=== PATIENT | female | born 1950 | race Caucasian/White ===

== ENCOUNTER 2018-06-05 10:52 | Emergency (ER) | payer OTHER ==
--- NOTE | 2018-06-05 11:13 | PDOC ---
History of Present Illness - General Chief Complaint: Injury Stated Complaint: FALL/BACK PAIN Time Seen by Provider: 06/05/18 11:11 History Source: Patient Exam Limitations: No Limitations - History of Present Illness Initial Comments: 06/05/18 12:12 HPI 67 YOF with no known medical history BIB EMS presenting trip and fall down 1 flight of stairs. She states she tripped at home, no prodromal sx, slipped and fell down 12 steps on her back/buttock. +hit to her head, but no LOC. complaining of significant lower back, abdominal and buttock pain. +left knee laceration and left knee pain. She called out to her neighbor who found her on the ground with pain. Tdap up to date < 5 years. No AC or ASA/antiplatelet use. 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 +current smoker. No alcohol. No illicit drugs. Surgical history: C- section ROS Constitutional: no fevers or chills. No weakness. HEENT: mild BERRIOS, no dizziness. No visual/hearing disturbances. CVS: no cp or syncope. Resp: no sob. No cough. Gastrointestinal: +abdominal pain, no nausea or vomiting. Genitourinary: no urinary sx, hematuria. MUSCULOSKELETAL: No joint pain and swelling. No neck pain, +back and pelvis/ buttock pain. SKIN: no redness or skin changes, no discharge, no rash. +left knee laceration. Hematologic: no easy bruising/bleeding. NEUROLOGIC: +headache, No dizziness, LOC or altered mental status. No weakness, numbness or tingling. Allergic/Immunologic: no allergies All other systems reviewed and negative, or as documented in HPI. PE: General: GCS 15 NAD, well appearing HEENT: NCAT, PERRL, EOMI. Airway intact. No battles sign or raccoon eyes. No e/ o ocular. Dentition intact. No e/o septal hematoma, nasal bridge stable. Neck: neck supple, no midline C spine tenderness or deformity, ROM intact. No anterior mass or crepitus, trachea midline. In c collar. Resp: no respiratory distress, +bilateral scant wheezing Chest: no clavicle or chest wall tenderness or crepitus CVS: RRR, 2+ pulses throughout. Abdomen: Abdomen soft, nondistended, +obese. +left sided lower abdomen and pelvis tenderness. Back: no midline spinal tenderness along cervical/thoracic/lumbar spine, no stepoffs. ROM limited 2/2 pain, +left buttock TTP. MSK: Pelvis stable, Extremities symmetric, no focal areas of tenderness or deformities, proximal and distally/ Left anterior knee laceration x 1.5cm, SQ, no crepitus, no joint involvement. No knee or extremity laxity. ROM in all extrem intact. Neuro: Alert, oriented appropriately. CN II-XII grossly symmetric and intact. no focal neuro deficits. Sensation and strength intact throughout. Gait normal/ stable. Skin: intact, normal color and well perfused. No external signs injury at neck , chest or abdomen or Back. +left anterior knee laceration, mild TTP. 06/05/18 14:19 06/05/18 15:48 Past History - Past Medical History Allergies/Adverse Reactions: Allergies Allergy/AdvReac Type Severity Reaction Status Date / Time No Known Allergies Allergy Verified 06/05/18 11:17 Home Medications: Ambulatory Orders Cyclobenzaprine HCl [Flexeril 10 mg] 10 mg PO TID PRN #20 tablet 06/05/18 Oxycodone HCl/Acetaminophen [Percocet 10-325 mg Tablet] 1 each PO QID PRN #12 tablet MDD 4 06/05/18 ED Treatment Course - LABORATORY CBC & Chemistry Diagram: 06/05/18 11:42 06/05/18 11:42 Medical Decision Making - Medical Decision Making 06/05/18 14:46 hpi as documented VS reviewed wnl. DDx. rib fx, lumbar/T and C spine fx/subluxation, compression fx, SDH/EDH, closed head injury. pelvic fx. intra thoracic/abdominal injury. due to mechanism, sherman scan as she fell down 1 flight of stairs. 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 CT chest, abdomen and pelvis remarkable for COPD/emphysematous changes. Bilateral bibasilar atelectasis noted, no focal infiltrative pattern., Equalization of the distal ileum noted. Diverticula without evidence of acute diverticulosis. Degenerative disc disease and L4-L5 region. No pelvic fracture noted or subluxation. Laceration of left knee repaired, no joint arthrotomy. NVI. see procedure note by resident, I supervised the procedure in its entirety. Xray knee neg for fx or injuries. C collar removed - cleared. pt denies any abdominal symptoms, last bowel movement this morning which was normal. Abdomen soft and non-tender, no fevers or systemic illnesses. CT reading of ileus and recommend admission and GI consultation is not warranted at this time, outpatient follow-up will be advised, no evidence of obstruction either. analgesia with oxycodone, flexeril and topical lidoderm. removal of sutures in 14 days. wound care precautions, avoid contamination, wound care management and infxn prevention prn pain control. fall safety instructions. results of CT results discussed. 06/05/18 15:29 06/05/18 16:11 *DC/Admit/Observation/Transfer Diagnosis at time of Disposition: Fall Qualifiers: Encounter type: initial encounter Qualified Code(s): W19.XXXA - Unspecified fall, initial encounter Low back sprain Qualifiers: Encounter type: initial encounter Qualified Code(s): S33.5XXA - Sprain of ligaments of lumbar spine, initial encounter Contusion of buttock Qualifiers: Encounter type: initial encounter Qualified Code(s): S30.0XXA - Contusion of lower back and pelvis, initial encounter - Discharge Dispostion Disposition: HOME Condition at time of disposition: Good Decision to Admit order: No - Prescriptions Prescriptions: Cyclobenzaprine HCl [Flexeril 10 mg] 10 mg PO TID PRN #20 tablet PRN Reason: Muscle Spasms Oxycodone HCl/Acetaminophen [Percocet 10-325 mg Tablet] 1 each PO QID PRN #12 tablet MDD 4 PRN Reason: Pain - Referrals Referrals: Ric Kay MD [Staff Physician] - Oneil Chiu MD [Staff Physician] - [facility] [place] [facility] [[place] Group] [facility] [Provider Group] - Patient Instructions Printed Discharge Instructions: DI for Low Back Pain, DI for Contusion, DI for Back Strain or Sprain Additional Instructions: CT imaging was all negative for any acute injuries. Also normal. you most likely have musculoskeletal strain or contusion of your buttock/back avoid heavy lifting or strenuous activity rest and take medications below as needed for mild to moderate pain. oxycodone with tylenol for severe pain, every 6 hours as needed flexeril is a muscle relaxant, take three times a day as needed may cause sleepiness, do not drive or operate machinery. topical lidoderm patch to the area affected, 12 hours on and 12 hours off.. continue with range of motion exercises. Rest ice and elevate affected extremity Follow up with primary doctor/specialist services provided as well. orthopedics referrals given. This should heal over the next 3-5 days. smoking cessation advised. Suture removal in 14 days. Wound dressed with topical Bacitracin and sterile gauze. Follow up with your primary care doctor within 48-72 hours for a wound check. Keep sutures covered and dry for 24 hours then clean with soap and water daily - do not scrub. Apply bacitracin or neosporin twice a day with warm soaks and cover with gauze/ dressings. Return to ED for suture removal 14 days. Return to the ED for any worsening pain, redness, streaking (red lines), swelling, fever or chills. Keep the wound clean and as dry as possible. Do not immerse or soak the wound in water. This means no swimming, washing dishes (unless thick rubber gloves are used), baths, or hot tubs until the stitches are removed or after about two weeks if absorbable suture material was used. Leave original bandages on the wound for the first 24 hours. After this time, showering or rinsing is recommended, rather than bathing. the first day, remove old bandages and gently cleanse the wound with soap and water. Cleansing twice a day prevents buildup of debris and will result in easier suture removal. FALL PREVENTION AT HOME WHAT YOU NEED TO KNOW There are many different factors that can increase your risk of falls. Falls can happen any time, but the majority of them occur in the home. Fall prevention includes ways to make your home and other areas safer. It also includes ways you can move more carefully to prevent a fall. Health conditions that cause changes in your blood pressure, vision, or muscle strength and coordination may increase your risk for falls. Medicines, including anesthesia, may increase your risk for falls if they make you dizzy, weak, or sleepy. FALL PREVENTION TIPS Stand or sit up slowly. This may help you keep your balance and prevent falls. Do not walk and talk at the same time. Concentrate on the task of walking and continue the conversation after you've reached a safe place. Wear shoes that fit well and have soles that president celebrity acquistion. Wear shoes both inside and outside. Use slippers with good president celebrity acquistion. Avoid shoes with high heels. Use assistive devices as directed. Your healthcare provider may suggest that you use a cane or walker to help you keep you balance. Be sure you have adequate lighting throughout your house. Keep paths clear. Remove books, shoes and other objects from walkways and stairs. Keep cords for telephones and lamps out of the way so you dont need to walk over them. Remove small rugs or secure them with double-sided tape. This will prevent you from tripping. Use a nightlight when getting out of bed at night. Stay active to maintain overall strength and endurance. Know your limitations. If there is a task you can not complete with ease, do not risk a fall by trying to complete it. Call 911 or have someone else call if: You have fallen and are unconscious You have fallen and cannot move part of your body Contact your healthcare provider if: You have fallen and have pain or a headache You have questions or concerns about your condition or care. - Post Discharge Activity Forms/Work/School Notes: Back to Work
[2018-06-05 11:17] VITALS: TEMP 98.1; BMI 34.8
[2018-06-05] MEDS ORDERED: ACETAMINOPHEN 325 MG TABLET (FP) PO ONE (11:23)
[2018-06-05] MEDS ORDERED: ACETAMINOPHEN 325 MG TABLET (FP) ONE ×2 (11:42→11:45)
[2018-06-05 12:08] LABS: BASO % 0.5 % (0-2.0); EOS % 1.5 % (0-4.5); HEMOGLOBIN 15.4 GM/dL (10.7-15.3); LYMPH % 35.8 % (8-40); MCH 32.8 pg (25.7-33.7); MCHC 35.1 g/dl (32.0-36.0); MEAN CELL VOLUME 93.5 fl (80-96); MEAN PLT VOLUME 8.3 fl (7.5-11.1); MONO % 6.8 % (3.8-10.2); NEUT % 55.4 % (42.8-82.8); PLATELET COUNT 237 K/MM3 (134-434); WHITE BLOOD COUNT 6.8 K/mm3 (4.0-10.0)
[2018-06-05 12:16] LABS: INR 0.98 (0.83-1.09); PROTHROMBIN TIME (PATIENT) 11.6 SEC (9.7-13.0)
[2018-06-05 12:24] LABS: ALBUMIN 3.5 g/dl (3.4-5.0); ALK PHOS 60 U/L (45-117); ANION GAP 3 MMOL/L (8-16); BILIRUBIN,TOTAL 0.4 mg/dL (0.2-1); BLOOD UREA NITROGEN 14 mg/dL (7-18); CHLORIDE 108 mmol/L (98-107); CO2 30 mmol/L (21-32); CREATININE 0.7 mg/dL (0.55-1.3); GLUCOSE,RANDOM 98 mg/dL (74-106); POTASSIUM 4.8 mmol/L (3.5-5.1); SGOT/AST 17 U/L (15-37); SGPT/ALT 23 U/L (13-61); SODIUM 141 mmol/L (136-145); TOT PROT 6.6 g/dl (6.4-8.2)
[2018-06-05] MEDS ORDERED: CYCLOBENZAPRINE HCL 5 MG TABLET PO ONE (14:58)
[2018-06-05] MEDS ORDERED: LIDOCAINE 5% TOPICAL PATCH TP ONE (14:58)
[2018-06-05] MEDS ORDERED: CYCLOBENZAPRINE HCL 10 MG TABLET (FP) ONE (15:21)
[2018-06-05] MEDS ORDERED: LIDOCAINE 5% TOPICAL PATCH ONE (15:22)
[2018-06-05] MEDS ORDERED: oxyCODONE HCL 5 MG TABLET PO ONE (15:28)
[2018-06-05] MEDS ORDERED: oxyCODONE HCL 5 MG TABLET ONE (15:51)
--- NOTE | 2018-06-05 16:04 | PDOC ---
*Physical Exam - Vital Signs Last Vital Signs Temp Pulse Resp BP Pulse Ox 98.1 F 65 16 164/84 100 06/05/18 11:02 06/05/18 11:02 06/05/18 11:02 06/05/18 11:02 06/05/18 11:02 ED Treatment Course - LABORATORY CBC & Chemistry Diagram: 06/05/18 11:42 06/05/18 11:42 - ADDITIONAL ORDERS Additional order review: Laboratory Results 06/05/18 06/05/18 11:42 11:42 PT with INR 11.60 INR 0.98 Sodium 141 Potassium 4.8 Chloride 108 H Carbon Dioxide 30 Anion Gap 3 L BUN 14 Creatinine 0.7 Creat Clearance w eGFR > 60 Random Glucose 98 Calcium 9.0 Total Bilirubin 0.4 AST 17 ALT 23 Alkaline Phosphatase 60 Total Protein 6.6 Albumin 3.5 06/05/18 11:42 RBC 4.70 MCV 93.5 MCHC 35.1 RDW 14.0 MPV 8.3 Neutrophils % 55.4 Lymphocytes % 35.8 Monocytes % 6.8 Eosinophils % 1.5 Basophils % 0.5 - Medications Given in the ED: ED Medications Discontinued Medications Generic Name Dose Route Start Last Admin Trade Name Freq PRN Reason Stop Dose Admin Acetaminophen 975 mg 06/05/18 11:23 06/05/18 11:44 Tylenol - PO 06/05/18 11:24 975 mg ONCE ONE Administration Cyclobenzaprine HCl 10 mg 06/05/18 14:58 06/05/18 15:26 Cyclobenzaprine Hcl PO 06/05/18 14:59 10 mg ONCE ONE Administration Lidocaine 1 patch 06/05/18 14:58 06/05/18 15:26 Lidoderm Patch - TP 06/05/18 14:59 1 patch ONCE ONE Administration Oxycodone HCl 10 mg 06/05/18 15:28 06/05/18 15:54 Roxicodone - PO 06/05/18 15:29 10 mg ONCE ONE Administration Medical Decision Making - Medical Decision Making 06/05/18 16:00 Pily Marcos is a 67yo woman who presented to the ED after falling down 12 steps. Her ED care was provided by Dr Bethea, but a 2cm left knee laceration was repaired by me. The wound was inspected at bedside. It was anesthetized with 5cc of 2% lidocaine and subsequently irrigated with copious sterile saline. A small piece of non-viable skin measuring 1.5cm x 0.1cm was sharply debrided from the edge of the wound. The laceration was repaired with 4-0 proline suture. 7 stitches were placed in total, 4 vertical mattress and 3 simple interrupted. The wound edges were well approximated, and adequate hemostasis was achieved. The wound was dressed with bacitracin and a clean bandage. Ms Marcos tolerated the procedure without complication. Dr Bethea was present to supervise the laceration repair. Liz Choe PGY1 *DC/Admit/Observation/Transfer Diagnosis at time of Disposition: Fall Qualifiers: Encounter type: initial encounter Qualified Code(s): W19.XXXA - Unspecified fall, initial encounter Low back sprain Qualifiers: Encounter type: initial encounter Qualified Code(s): S33.5XXA - Sprain of ligaments of lumbar spine, initial encounter Contusion of buttock Qualifiers: Encounter type: initial encounter Qualified Code(s): S30.0XXA - Contusion of lower back and pelvis, initial encounter - Discharge Dispostion Disposition: HOME Condition at time of disposition: Good - Prescriptions Prescriptions: Cyclobenzaprine HCl [Flexeril 10 mg] 10 mg PO TID PRN #20 tablet PRN Reason: Muscle Spasms Oxycodone HCl/Acetaminophen [Percocet 10-325 mg Tablet] 1 each PO QID PRN #12 tablet MDD 4 PRN Reason: Pain Level 7 - 10 - Referrals Referrals: [facility] [[facility] Group] [facility] [Provider Group] Ric Kay MD [Staff Physician] - Oneil Chiu MD [Staff Physician] - - Patient Instructions Printed Discharge Instructions: DI for Low Back Pain, DI for Contusion, DI for Back Strain or Sprain Additional Instructions: CT imaging was all negative for any acute injuries. Also normal. you most likely have musculoskeletal strain or contusion of your buttock/back avoid heavy lifting or strenuous activity rest and take tylenol as needed for mild to moderate pain. flexeril is a muscle relaxant, take three times a day as needed may cause sleepiness, do not drive or operate machinery. topical lidoderm patch to the area affected, 12 hours on and 12 hours off.. May take ibuprofen/tylenol as needed, over the counter. continue with range of motion exercises. Rest ice and elevate affected extremity Follow up with primary doctor/specialist services provided as well. orthopedics referrals given. This should heal over the next 3-5 days. FALL PREVENTION AT HOME WHAT YOU NEED TO KNOW There are many different factors that can increase your risk of falls. Falls can happen any time, but the majority of them occur in the home. Fall prevention includes ways to make your home and other areas safer. It also includes ways you can move more carefully to prevent a fall. Health conditions that cause changes in your blood pressure, vision, or muscle strength and coordination may increase your risk for falls. Medicines, including anesthesia, may increase your risk for falls if they make you dizzy, weak, or sleepy. FALL PREVENTION TIPS Stand or sit up slowly. This may help you keep your balance and prevent falls. Do not walk and talk at the same time. Concentrate on the task of walking and continue the conversation after you've reached a safe place. Wear shoes that fit well and have soles that business analysis professional. Wear shoes both inside and outside. Use slippers with good business analysis professional. Avoid shoes with high heels. Use assistive devices as directed. Your healthcare provider may suggest that you use a cane or walker to help you keep you balance. Be sure you have adequate lighting throughout your house. Keep paths clear. Remove books, shoes and other objects from walkways and stairs. Keep cords for telephones and lamps out of the way so you dont need to walk over them. Remove small rugs or secure them with double-sided tape. This will prevent you from tripping. Use a nightlight when getting out of bed at night. Stay active to maintain overall strength and endurance. Know your limitations. If there is a task you can not complete with ease, do not risk a fall by trying to complete it. Call 911 or have someone else call if: You have fallen and are unconscious You have fallen and cannot move part of your body Contact your healthcare provider if: You have fallen and have pain or a headache You have questions or concerns about your condition or care. - Post Discharge Activity Procedures - Laceration/Wound Repair Left Anterior Knee Wound Length: to 2.5 cm Wound Explored: clean Wound's Depth, Shape: superficial Irrigated w/ Saline: Yes Betadine Prep: No Anesthesia: 1% Lidocaine Amount of Anesthetic (ccs): 5 Wound Debrided: minimal Wound Repaired With: Sutures Suture Size/Type: 4:0 Number of Sutures: 7 (4 vertical mattress, 3 simple interrupted) Layer Closure: No Sterile Dressing Applied: Yes
[2018-06-05 16:21] VITALS: BP 125/74; PULSE 58
[2018-06-05] MEDS ORDERED: LIDOCAINE PATCH REMOVAL MC SCH (22:00)
== END 2018-06-05 16:20 | disposition home or self-care (01) ==
LOC: JER 10:52
PROC: 0HQLXZZ Repair Left Lower Leg Skin, External Approach (ICD-10-PCS; principal; 2018-06-05)
DX: S33.5XXA Sprain of ligaments of lumbar spine, initial encounter (principal); S30.0XXA Contusion of lower back and pelvis, initial encounter; S81.012A Laceration without foreign body, left knee, initial encounter; W10.8XXA Fall (on) (from) other stairs and steps, initial encounter; Y93.89 Activity, other specified; Y92.038 Other place in apartment as the place of occurrence of the external cause
CPT/HCPCS: 36415; 70450-TC; 71260-TC; 72125-TC; 72128-TC; 72131-TC; 73562-TC-LT-FY; 74177-TC; 80053; 85025; 85610; 99283-25

== ENCOUNTER 2018-06-08 07:09 | Inpatient (IN) | payer OTHER ==
--- NOTE | 2018-06-08 07:16 | PDOC ---
History of Present Illness - General Stated Complaint: ABDOMINAL PAIN Time Seen by Provider: 06/08/18 07:16 History Source: Patient Exam Limitations: No Limitations - History of Present Illness Initial Comments: 06/08/18 07:38 67 year old female with PMH chronic cough, nicotine use presented to ED for abdominal pain and constipation x3 days. Pt was seen in ED 06/05 for trip and fall, all CT imaging was negative for acute findings, pt was discharged home on Percocet and Flexeril. Pt reported last BM was 06/05, pt denied passing gas. Pt stated her abdominal pain is intermittent, sharp and intense, located to her LLQ , worsened by movement and breathing. Pt admitted to nausea, denied vomiting, diarrhea, fever, chills, chest pain, shortness of breath. Pt stated she noticed her lower extremities were swollen this morning, L>R. Allergies: NKDA Past History - Past Medical History Allergies/Adverse Reactions: Allergies Allergy/AdvReac Type Severity Reaction Status Date / Time No Known Allergies Allergy Verified 06/05/18 11:17 Home Medications: Ambulatory Orders Cyclobenzaprine HCl [Flexeril 10 mg] 10 mg PO TID PRN #20 tablet 06/05/18 Oxycodone HCl/Acetaminophen [Percocet 10-325 mg Tablet] 1 each PO QID PRN #12 tablet MDD 4 06/05/18 COPD: No - Suicide/Smoking/Psychosocial Hx Smoking History: Never smoked Have you smoked in the past 12 months: No Hx Alcohol Use: No Drug/Substance Use Hx: No Review of Systems - Review of Systems Able to Perform ROS?: Yes Comments:: 06/08/18 07:40 General: denied fever, chills, night sweats, generalized weakness. HEENT: denied sore throat, rhinorrhea, ear pain. Heart: admitted to lower extremity swelling. denied chest pain, palpitations, syncope, diaphoresis. Respiratory: denied shortness of breath, increased cough, increased sputum production, hemoptysis. Abdomen: admitted to abdominal pain, nausea. denied vomiting, diarrhea, constipation, blood in stool. : denied dysuria, increased urinary frequency, hematuria, urinary incontinence , flank pain. Back: denied back pain. Musculoskeletal: denied joint pain, muscle pain, joint swelling. Neurological: denied headache, dizziness, numbness, tingling, weakness. Skin: denied rash, laceration, abrasion. *Physical Exam - Physical Exam Comments: 06/08/18 07:41 Constitutional: Well-nourished, Well-developed, appearing stated age. appears in pain. HEENT: head is normocephalic, atraumatic. EOMI. PERRLA. Neck: supple. Full ROM. Heart: regular rhythm. no murmurs, rubs or gallops. Lungs: rhonchous breath sounds bilaterally. no crackles. no stridor. speaking full sentences. no labored breathing. Abdomen: guarding. severe tenderness to palpation of LLQ. normal to increased bowel sounds. Extremities: Peripheral pulses intact. nonpitting edema to lower extremities, L> R. Neurological: CN 2-12 grossly intact. Moves all four extremities. Psych: awake, alert, oriented x3. Follows commands. Answers questions appropriately. Procedures - Bedside Ultrasound Remarks: 06/08/18 08:26 Bedside cardiac lung ultrasound was performed. - Subxiphoid view unable to be obtained, pt cannot lie flat secondary to pain - No RV dilation, no septal bowing, no pericardial effusion, tachycardia Bedside lung US was performed: - No pericardial effusion bilaterally - Positive lung sliding bilaterally - A-lines bilaterally, no B-lines ED Treatment Course - LABORATORY CBC & Chemistry Diagram: 06/09/18 06:20 06/09/18 06:20 Medical Decision Making - Medical Decision Making 06/08/18 07:42 67 year old female with above PMH presented to ED for abdominal pain and constipation x3 days with bilateral lower extremity swelling (L>R). Pt was seen 06/05/18 for trip and fall. Exam significant for: rhonchi bilaterally. bilateral lower extremity edema, L> R. ED Course Summary 06/05/18: -CT Head Report: no intracranial hemorrhage, lesion or gross acute infarct. -CT cervical/thoracic/lumbar spine report: no acute fracture/subluxation -CT Chest with and without contrast: COPD changes. normal enhancement of the pulmonary artery and its branches, as well as the thoracic and abdominal aorta. no aortic aneurysmal dilation. -Left Knee XR: no acute fracture/dislocation/swelling/FB - Normal CBC, CMP Initial Vital Signs Temp Pulse Resp BP Pulse Ox 98.8 F 112 H 24 H 169/93 82 L 06/08/18 07:21 06/08/18 07:21 06/08/18 07:21 06/08/18 07:21 06/08/18 07:21 Afebrile. Tachycardic. Tachypneic. Hypertensive. Hypoxic on room air. - Pt placed on 2L O2 with O2 sat rising to 90%. - Pt placed on duonebs with O2 sat rising to 94% - At this time the patient was speaking full sentences, nonlabored breathing, would intermittently get sharp abdominal pain Labs ordered: CBC, CMP, lipase, BNP, troponin, lactate, T/S, mag, phos, UA Imaging ordered: US B/L LE, CXR, CT A/P Medications ordered: morphine 4 mg IV, zofran 4 mg IV, normal saline 1000 cc bolus, duonebs EKG performed at 0929: rate 107, regular rhythm, normal axis, flipped T in aVL, otherwise no acute ST changes. Bedside lung US was performed - no pleural effusions bilaterally. A-lines bilaterally. positive lung sliding bilaterally. no B-lines. Bedside cardiac US was performed - no pericardial effusion. tachycardia. no RV dilation. no septal bowing. Bilateral LE duplex US to be performed at bedside. US department informed. 06/08/18 08:45 CMP Sodium 135 mmol/L (136-145) L 06/08/18 07:35 Potassium 4.2 mmol/L (3.5-5.1) 06/08/18 07:35 Chloride 100 mmol/L (98-107) 06/08/18 07:35 Carbon Dioxide 28 mmol/L (21-32) 06/08/18 07:35 Anion Gap 7 MMOL/L (8-16) L 06/08/18 07:35 BUN 10 mg/dL (7-18) 06/08/18 07:35 Creatinine 0.7 mg/dL (0.55-1.3) 06/08/18 07:35 Creat Clearance w eGFR > 60 (>60) 06/08/18 07:35 Random Glucose 96 mg/dL (74-106) 06/08/18 07:35 Lactic Acid 1.1 mmol/L (0.4-2.0) 06/08/18 07:35 Calcium 8.4 mg/dL (8.5-10.1) L 06/08/18 07:35 Phosphorus 2.9 mg/dL (2.5-4.9) 06/08/18 07:35 Magnesium 2.1 mg/dL (1.8-2.4) 06/08/18 07:35 Total Bilirubin 0.6 mg/dL (0.2-1) 06/08/18 07:35 AST 14 U/L (15-37) L 06/08/18 07:35 ALT 19 U/L (13-61) 06/08/18 07:35 Alkaline Phosphatase 69 U/L (45-117) 06/08/18 07:35 Troponin I < 0.02 ng/ml (0.00-0.05) 06/08/18 07:35 B-Natriuretic Peptide 223.0 pg/ml (5-125) H 06/08/18 07:35 Total Protein 7.0 g/dl (6.4-8.2) 06/08/18 07:35 Albumin 3.5 g/dl (3.4-5.0) 06/08/18 07:35 Lipase 98 U/L (73-393) 06/08/18 07:35 No electrolyte abnormalities. No GUILLERMINA. No lactic acidosis. Normal troponin. Mildly elevated BNP Normal lipase. 06/08/18 09:25 B/L US report: negative for DVT CBC WBC 10.6 K/mm3 (4.0-10.0) H 06/08/18 07:35 RBC 4.80 M/mm3 (3.60-5.2) 06/08/18 07:35 Hgb 15.5 GM/dL (10.7-15.3) H 06/08/18 07:35 Hct 44.9 % (32.4-45.2) 06/08/18 07:35 MCV 93.5 fl (80-96) 06/08/18 07:35 MCH 32.3 pg (25.7-33.7) 06/08/18 07:35 MCHC 34.5 g/dl (32.0-36.0) 06/08/18 07:35 RDW 14.0 % (11.6-15.6) 06/08/18 07:35 Plt Count 227 K/MM3 (134-434) 06/08/18 07:35 MPV 8.2 fl (7.5-11.1) 06/08/18 07:35 Absolute Neuts (auto) 7.7 K/mm3 (1.5-8.0) 06/08/18 07:35 Neutrophils % 72.1 % (42.8-82.8) D 06/08/18 07:35 Lymphocytes % 20.7 % (8-40) D 06/08/18 07:35 Monocytes % 5.5 % (3.8-10.2) 06/08/18 07:35 Eosinophils % 1.5 % (0-4.5) 06/08/18 07:35 Basophils % 0.2 % (0-2.0) 06/08/18 07:35 Nucleated RBC % 0 % (0-0) 06/08/18 07:35 Mile leukocytosis. No left shift. No anemia. 06/08/18 12:26 Urine Test Results Urine Color Straw 06/08/18 08:55 Urine Appearance Clear 06/08/18 08:55 Urine pH 5.0 (5.0-8.0) 06/08/18 08:55 Ur Specific [place] 1.004 (1.010-1.035) L 06/08/18 08:55 Urine Protein Negative (NEGATIVE) 06/08/18 08:55 Urine Glucose (UA) Negative (NEGATIVE) 06/08/18 08:55 Urine Ketones Negative (NEGATIVE) 06/08/18 08:55 Urine Blood 2+ (NEGATIVE) H 06/08/18 08:55 Urine Nitrite Negative (NEGATIVE) 06/08/18 08:55 Urine Bilirubin Negative (<2.0 mg/dL) 06/08/18 08:55 Ur Leukocyte Esterase Trace (NEGATIVE) 06/08/18 08:55 Ur Epithelial Cells Rare /HPF (FEW) 06/08/18 08:55 4 WBC. Asymptomatic. No evidence of UTI Radiologist called to inform that pt has PE. Chest CTA report: since prior CT , there is interval development of an acute embolus seen straddling the distal aspect of the right main pulmonary artery with severeal acute upper nad lower lobe segment emboli. no pleural effusions. no cardiomegaly. CT abdomen report: no CT findings of acute pathology. no interval change in comparison to prior CT 05/26/18. right sided colonic fecal retention. diverticulosis. no diverticulitis. Medications ordered: Lovenox Diagnoses: 1) Acute Central and Peripheral Pulmonary Embolism without DVT - Mild BNP elevation and no troponin leak 2) Hypoxia/Respiratory Distress 3) Peripheral Edema Pt to be admitted. ICU evaluation needed. 06/08/18 13:21 I spoke with the admitting team about the patient, who agreed with ICU evaluation. The pt was then seen and evaluated by Dr. Carreon and Dr. Delgado, ICU, who advised that the patient is stable for tele. -Please see their note. Admitting team informed. 06/08/18 14:01 Pt transported to Tele. *DC/Admit/Observation/Transfer Diagnosis at time of Disposition: Pulmonary embolism, Hypoxia, Respiratory distress, Tachycardia, Peripheral edema - Discharge Dispostion Condition at time of disposition: Stable Decision to Admit order: Yes - Referrals - Patient Instructions - Post Discharge Activity
[2018-06-08 07:22] VITALS: BMI 24.2
[2018-06-08] MEDS ORDERED: SODIUM CHLORIDE 1,000 ML IV STA (07:32)
[2018-06-08] MEDS ORDERED: morphine CARPU-JECT 4 MG/1 ML DISP.SYRIN IVPUSH ONE (07:32)
[2018-06-08] MEDS ORDERED: ONDANSETRON 4 MG/2 ML VIAL IVPUSH ONE (07:32)
--- NOTE | 2018-06-08 07:32 | PDOC ---
Attending Attestation - Resident Resident Name: Maynor,Loli - ED Attending Attestation I have performed the following: I have examined & evaluated the patient, The case was reviewed & discussed with the resident, I agree w/resident's findings & plan, Exceptions are as noted - HPI HPI: 06/08/18 07:32 67y F no russell pmhx presents with abdominal pain for 3 days. The patient notes that the abdominal pain is intermittent, seems to come in waves associated with no bowel movement for 3 days since. 3 days ago she was seen in our emergency department after fall down stairs she had a trauma CT workup that was negative for any acute findings. Patient notes that since then she has some chronic back pain. Patient notes that her abdominal pain is intermittent, nonradiating, worse in the left lower quadrant. No associated fever, chills, nausea, vomiting , dysuria, diarrhea. The patient also denies any chest pain or shortness of breath or hemoptysis. Patient denies HELLER however notes that she has been largely bedbound since her fall. No hx of DVT/PE social history: chronic smoker GENERAL: The patient is awake, alert, and fully oriented, Nontoxic - but apperas to be in [place] nintermittently HEAD: Normocephalic, atraumatic. EYES: extraocular movements intact, sclera anicteric, conjunctiva clear. ENT: Normal voice, Moist mucous membranes. NECK: Normal range of motion, supple LUNGS: slightly rhonchorus breath sounds wo wheezing, no acute respiratory distress, speaking ocmplete sentences HEART: tachycardic, normal S1 and S2 without murmur, rub or gallop. ABDOMEN: Soft, moderate LLQ TTP with voluntary guarding, no rebound. No CVA tenderness EXTREMITIES: Normal range of motion, +1 pitting symetric edema. Neg homans or calf tenderness NEUROLOGICAL: No facial assymetry, Normal speech, PSYCH: Normal mood, normal affect. SKIN: Warm, Dry, normal turgor, ddx - abd pain - ileus as side effect from percoct, kidney stone, diverticulitis, ? possible trauma related from intrperitoneal hemorrhage hypxocia/tacycardia - ?PE vs atelectasis from splinting due to pain pts oxygenation noted at 85% on RA here - she was formerly at 100% on a prior visit. though on her ct she had signs of COPD - she likely has undiagnosed COPD -however it is concerning that she had a drop in O2 sat from prior admission. We'll obtain ultrasound of her legs to rule out DVT, d-dimer to screen for PE. The give the patient's a nebulizer will reassess - Physicial Exam PE: 06/08/18 13:34 see above - Medical Decision Making 06/08/18 12:[address] was reviewed it is notable for pulmonary embolism We'll start the patient on Lovenox the patient has no contraindications to anticoagulation. We'll admit the patient to the ICU. CRITICAL CARE DOCUMENTATION: I spent ~35 minutes of Critical Care time, excluding separately billable procedures, involving high complexity decision making to assess, manipulate and support vital system function(s) to treat single or multiple vital organ system failure and/or to prevent further life threatening deterioration of the patient' s condition. 06/08/18 13:[address] carrizales agree with management. recommends telemetry, but they will follow
[2018-06-08] MEDS ORDERED: ALBUTEROL SO4 2.5/IPRATROPIUM 0.5 INH SOL 3 ML VIAL.NEB. NEB ONE ×2 (07:45→07:52)
[2018-06-08] MEDS ORDERED: ONDANSETRON 4 MG/2 ML VIAL ONE (07:52)
[2018-06-08] MEDS ORDERED: morphine SULFATE 4 MG/ML VIAL ONE (07:52)
[2018-06-08 08:15] LABS: INR 1.03 (0.83-1.09); PROTHROMBIN TIME (PATIENT) 12.1 SEC (9.7-13.0)
[2018-06-08 08:18] LABS: ACTIVATED PTT 28.7 SECONDS (25.2-36.5)
[2018-06-08 08:21] LABS: ALBUMIN 3.5 g/dl (3.4-5.0); ALK PHOS 69 U/L (45-117); ANION GAP 7 MMOL/L (8-16); BILIRUBIN,TOTAL 0.6 mg/dL (0.2-1); BLOOD UREA NITROGEN 10 mg/dL (7-18); CALCIUM 8.4 mg/dL (8.5-10.1); CHLORIDE 100 mmol/L (98-107); CO2 28 mmol/L (21-32); CREATININE 0.7 mg/dL (0.55-1.3); GLUCOSE,RANDOM 96 mg/dL (74-106); MAGNESIUM 2.1 mg/dL (1.8-2.4); PHOSPHOROUS 2.9 mg/dL (2.5-4.9); POTASSIUM 4.2 mmol/L (3.5-5.1); SGOT/AST 14 U/L (15-37); SGPT/ALT 19 U/L (13-61); SODIUM 135 mmol/L (136-145)
[2018-06-08 08:34] LABS: LIPASE 98 U/L (73-393)
[2018-06-08 09:19] LABS: BASO % 0.2 % (0-2.0); EOS % 1.5 % (0-4.5); HEMATOCRIT 44.9 % (32.4-45.2); HEMOGLOBIN 15.5 GM/dL (10.7-15.3); LYMPH % 20.7 % (8-40); MCH 32.3 pg (25.7-33.7); MCHC 34.5 g/dl (32.0-36.0); MEAN CELL VOLUME 93.5 fl (80-96); MEAN PLT VOLUME 8.2 fl (7.5-11.1); MONO % 5.5 % (3.8-10.2); NEUT % 72.1 % (42.8-82.8); PLATELET COUNT 227 K/MM3 (134-434); WHITE BLOOD COUNT 10.6 K/mm3 (4.0-10.0)
[2018-06-08 09:19] LABS: URINE APPEARANCE CLEAR; URINE BILIRUBIN NEGATIVE (<2.0 mg/dL); URINE COLOR STRAW; URINE GLUCOSE (UA) NEGATIVE (NEGATIVE); URINE KETONE NEGATIVE (NEGATIVE); URINE LEUK ESTERASE TRACE (NEGATIVE); URINE NITRITE NEGATIVE (NEGATIVE); URINE PROTEIN NEGATIVE (NEGATIVE); URINE UROBILINOGEN NEGATIVE mg/dL (0.2-1.0)
[2018-06-08 09:37] LABS: EPI CELLS RARE /HPF (FEW)
[2018-06-08] MEDS ORDERED: ENOXAPARIN NA (PORCINE) 80 MG/0.8 ML DISP.SYRIN SQ ONE ×2 (12:30→12:42)
[2018-06-08] MEDS ORDERED: HYDROmorphone HCL 2 MG TABLET PO PRN (13:24)
[2018-06-08] MEDS ORDERED: HYDROmorphone HCL 2 MG TABLET ONE (13:35)
--- NOTE | 2018-06-08 13:44 | CONSULT ---
Consultation: REQUESTING PROVIDER: CONSULT REQUEST: We have been asked to medically evaluate this patient for ( specify). HISTORY OF PRESENT ILLNESS: Pt is a 67 y/o F w/ PMH chronic cough and nicotine use who presented to ED with complaint of LLQ pain. Pt has felt unwell for the last few days. Admits to cough associated with moderate-severe L abdominal pain. Denies coughing blood, fever, chills, cp, leg swelling, recent surgery, air travel, immobilization. Pt is an active smoker and shares 1 ppd with her for many years. In ED, pt was found to be hypoxic and tachycardic. Pt had CTA, which revealed PE in Right pulm art as well as distal clot burden. ICU was called to evaluate for PE with hypoxia. REVIEW OF SYSTEMS: CONSTITUTIONAL: Absent: fever, chills, diaphoresis, generalized weakness, malaise, loss of appetite, weight change HEENT: Absent: rhinorrhea, nasal congestion, throat pain, throat swelling, difficulty swallowing, mouth swelling, ear pain, eye pain, visual changes CARDIOVASCULAR: Absent: chest pain, syncope, palpitations, irregular heart rate, lightheadedness , peripheral edema RESPIRATORY: cough, shortness of breath Absent: , dyspnea with exertion, orthopnea, wheezing, stridor, hemoptysis GASTROINTESTINAL: Absent: abdominal pain, abdominal distension, nausea, vomiting, diarrhea, constipation, melena, hematochezia GENITOURINARY: Absent: dysuria, frequency, urgency, hesitancy, hematuria, flank pain, genital pain MUSCULOSKELETAL: Absent: myalgia, arthralgia, joint swelling, back pain, neck pain SKIN: Absent: rash, itching, pallor HEMATOLOGIC/IMMUNOLOGIC: Absent: easy bleeding, easy bruising, lymphadenopathy, frequent infections ENDOCRINE: Absent: unexplained weight gain, unexplained weight loss, heat intolerance, cold intolerance NEUROLOGIC: Absent: headache, focal weakness or paresthesias, dizziness, unsteady gait, seizure, mental status changes, bladder or bowel incontinence PSYCHIATRIC: Absent: anxiety, depression, suicidal or homicidal ideation, hallucinations. PHYSICAL EXAMINATION Vital Signs - 24 hr 06/08/18 06/08/18 06/08/18 07:21 08:45 12:35 Temperature 98.8 F Pulse Rate 112 H Pulse Rate [ 122 H Right] Respiratory 24 H 20 Rate Blood Pressure 169/93 Blood Pressure 161/97 [Right Arm] O2 Sat by Pulse 82 L 90 L 90 L Oximetry (%) 06/08/18 13:19 Temperature 99.9 F H Pulse Rate Pulse Rate [ 76 Right] Respiratory 20 Rate Blood Pressure Blood Pressure 88/57 L [Right Arm] O2 Sat by Pulse 96 Oximetry (%) Gen: Awake AAO x 3. Comfortable appearing, NAD HEENT: NCAT, EOMI Neck: supple, minimal jvd Cardio: tachycardic, normal s1s2, no mrg appreciated Pulm: cta b/l, bibasilar crackles, no wheezing appreciated Abd: Soft, nondistended, NONtender to palpation throughout. Pain in LLQ on deep inspiration ext: b/l finger clubbing. No edema. Calves roughly equal in size. Nontender. Laboratory Results - last 24 hr 06/08/18 06/08/18 06/08/18 07:35 07:35 07:35 WBC 10.6 H RBC 4.80 Hgb 15.5 H Hct 44.9 MCV 93.5 MCH 32.3 MCHC 34.5 RDW 14.0 Plt Count 227 MPV 8.2 Absolute Neuts (auto) 7.7 Neutrophils % 72.1 D Lymphocytes % 20.7 D Monocytes % 5.5 Eosinophils % 1.5 Basophils % 0.2 Nucleated RBC % 0 PT with INR 12.10 INR 1.03 PTT (Actin FS) 28.7 Sodium 135 L Potassium 4.2 Chloride 100 Carbon Dioxide 28 Anion Gap 7 L BUN 10 Creatinine 0.7 Creat Clearance w eGFR > 60 Random Glucose 96 Lactic Acid Calcium 8.4 L Phosphorus 2.9 Magnesium 2.1 Total Bilirubin 0.6 AST 14 L ALT 19 Alkaline Phosphatase 69 Troponin I < 0.02 B-Natriuretic Peptide Total Protein 7.0 Albumin 3.5 Lipase 98 Urine Color Urine Appearance Urine pH Ur Specific [place] Urine Protein Urine Glucose (UA) Urine Ketones Urine Blood Urine Nitrite Urine Bilirubin Urine Urobilinogen Ur Leukocyte Esterase Urine WBC (Auto) Urine RBC (Auto) Ur Epithelial Cells Fld [place] IgM [place] Screen IgG & IgM [place] Antibody Value [place] IgG W Blot Interp [place] Ab Interpretation 06/08/18 06/08/18 06/08/18 07:35 07:35 08:55 WBC RBC Hgb Hct MCV MCH MCHC RDW Plt Count MPV Absolute Neuts (auto) Neutrophils % Lymphocytes % Monocytes % Eosinophils % Basophils % Nucleated RBC % PT with INR INR PTT (Actin FS) Sodium Potassium Chloride Carbon Dioxide Anion Gap BUN Creatinine Creat Clearance w eGFR Random Glucose Lactic Acid 1.1 Calcium Phosphorus Magnesium Total Bilirubin AST ALT Alkaline Phosphatase Troponin I B-Natriuretic Peptide 223.0 H Total Protein Albumin Lipase Urine Color Straw Urine Appearance Clear Urine pH 5.0 Ur Specific [place] 1.004 L Urine Protein Negative Urine Glucose (UA) Negative Urine Ketones Negative Urine Blood 2+ H Urine Nitrite Negative Urine Bilirubin Negative Urine Urobilinogen Negative Ur Leukocyte Esterase Trace Urine WBC (Auto) 4 Urine RBC (Auto) <1 Ur Epithelial Cells Rare Fld [place] IgM [place] Screen IgG & IgM [place] Antibody Value [place] IgG W Blot Interp [place] Ab Interpretation 06/08/18 09:40 WBC RBC Hgb Hct MCV MCH MCHC RDW Plt Count MPV Absolute Neuts (auto) Neutrophils % Lymphocytes % Monocytes % Eosinophils % Basophils % Nucleated RBC % PT with INR INR PTT (Actin FS) Sodium Potassium Chloride Carbon Dioxide Anion Gap BUN Creatinine Creat Clearance w eGFR Random Glucose Lactic Acid Calcium Phosphorus Magnesium Total Bilirubin AST ALT Alkaline Phosphatase Troponin I B-Natriuretic Peptide Total Protein Albumin Lipase Urine Color Urine Appearance Urine pH Ur Specific [place] Urine Protein Urine Glucose (UA) Urine Ketones Urine Blood Urine Nitrite Urine Bilirubin Urine Urobilinogen Ur Leukocyte Esterase Urine WBC (Auto) Urine RBC (Auto) Ur Epithelial Cells Fld [place] IgM [place] Cancelled [place] Screen IgG & IgM Cancelled [place] Antibody Value Cancelled [place] IgG W Blot Interp Cancelled [place] Ab Interpretation Cancelled Active Medications Generic Name Dose Route Start Last Admin Trade Name Freq PRN Reason Stop Dose Admin Hydromorphone HCl 2 mg 06/08/18 13:24 06/08/18 13:38 Dilaudid - PO 2 mg Q6H PRN Administration PAIN LEVEL 7 - 10 ASSESSMENT/PLAN: Pt is a 67 y/o F with PMH significant for chronic cough and smoking who presented to ED with complaint of LLQ pain. Pt was found to have PE with tachycardia and hypoxia. #PE -tachycardic, hypoxic -CTA revealed R PE -O2 sat improved on nasal canula -Pt being treated with Lovenox -maintain O2 > 88% #FEN -not on fluids -lytes wnl -reg diet #PPx -on Hep #Dispo -pt is hemodynamically stable and able to maintain O2 sat with nasal canula. Recommend Telemetry monitoring. If condition worsens, will reevaluate for possible ICU transfer. Dispo: We will continue to follow the patient. Thank you for this consultative opportunity. Visit type - Emergency Visit Emergency Visit: Yes ED Registration Date: 06/08/18 Care time: The patient presented to the Emergency Department on the above date and was hospitalized for further evaluation of their emergent condition. - New Patient This patient is new to me today: Yes Date on this admission: 06/08/18 - Critical Care Critical Care patient: No
--- NOTE | 2018-06-08 13:50 | PN ---
Teaching Attending Note Name of Resident: Vincent Carreon ATTENDING PHYSICIAN STATEMENT I saw and evaluated the patient. I reviewed the resident's note and discussed the case with the resident. I agree with the resident's findings and plan as documented. SUBJECTIVE: 67 F, 1 PPD smoker. Recently seen in the ER on 06/05 due to fall. Had multiple scans completed. CT chest did not show a PE. She returns to the ER due to abdominal pain and constipation x 3 days. She also reports Left flank and rib discomfort. She denies CP or SOB. No travel history or periods of prolonged immobilization. No previous personal or family history of VTE. No hemoptysis. CTA: Acute Right distal pulmonary artery PE with bilateral defects noted, emphysema, bibasilar atelectasis. She is currently saturating 93% on 4 L NC and appears comfortable. She does have a resting tachycardia but BP is 160/90. Her BNP is low and no troponin leak. No DVT noted on US evaluation. She has already received SQ Lovenox. Intake & Output 06/05/18 06/06/18 06/07/18 06/08/18 23:59 23:59 23:59 23:59 Weight 150 lb Last Vital Signs Temp Pulse Resp BP Pulse Ox 98.8 F 122 H 20 161/97 90 L 06/08/18 07:21 06/08/18 12:35 06/08/18 12:35 06/08/18 12:35 06/08/18 12:35 Active Medications Hydromorphone HCl (Dilaudid -) 2 mg PO Q6H PRN PRN Reason: PAIN LEVEL 7 - 10 Last Admin: 06/08/18 13:38 Dose: 2 mg GENERAL: Awake, alert, and fully oriented, in no acute distress. HEAD: Normal with no signs of trauma. EYES: sclera anicteric, conjunctiva clear. No lid lag. EARS, NOSE, THROAT: Ears normal, nares patent, oropharynx clear without exudates. Moist mucous membranes. NECK: Normal range of motion, supple without lymphadenopathy, JVD, or masses. LUNGS: Bibasilar crackles. No wheezes. No accessory muscle use. HEART: Regular rate and rhythm, normal S1 and S2 without murmur, rub or gallop. ABDOMEN: Soft, nontender, not distended, normoactive bowel sounds, no guarding, no rebound, no masses. No hepatomegaly or splenomegaly. MUSCULOSKELETAL: Normal range of motion at all joints. No bony deformities or tenderness. No CVA tenderness. UPPER EXTREMITIES: 2+ pulses, warm, well-perfused. No cyanosis. No clubbing. Cap refill <2 seconds. No peripheral edema. LOWER EXTREMITIES: 2+ pulses, warm, well-perfused. No calf tenderness. No peripheral edema. NEUROLOGICAL: Non-focal PSYCHIATRIC: Cooperative. Good eye contact. Appropriate mood and affect. SKIN: Warm, dry, normal turgor, no rashes or lesions noted. Laboratory Results - last 24 hr 06/08/18 06/08/18 06/08/18 07:35 07:35 07:35 WBC 10.6 H RBC 4.80 Hgb 15.5 H Hct 44.9 MCV 93.5 MCH 32.3 MCHC 34.5 RDW 14.0 Plt Count 227 MPV 8.2 Absolute Neuts (auto) 7.7 Neutrophils % 72.1 D Lymphocytes % 20.7 D Monocytes % 5.5 Eosinophils % 1.5 Basophils % 0.2 Nucleated RBC % 0 PT with INR 12.10 INR 1.03 PTT (Actin FS) 28.7 Sodium 135 L Potassium 4.2 Chloride 100 Carbon Dioxide 28 Anion Gap 7 L BUN 10 Creatinine 0.7 Creat Clearance w eGFR > 60 Random Glucose 96 Lactic Acid Calcium 8.4 L Phosphorus 2.9 Magnesium 2.1 Total Bilirubin 0.6 AST 14 L ALT 19 Alkaline Phosphatase 69 Troponin I < 0.02 B-Natriuretic Peptide Total Protein 7.0 Albumin 3.5 Lipase 98 Urine Color Urine Appearance Urine pH Ur Specific [place] Urine Protein Urine Glucose (UA) Urine Ketones Urine Blood Urine Nitrite Urine Bilirubin Urine Urobilinogen Ur Leukocyte Esterase Urine WBC (Auto) Urine RBC (Auto) Ur Epithelial Cells Fld Lyme IgM [place]ot Lyme Screen IgG & IgM Lyme Antibody Value Lyme IgG W Blot Interp Lyme Ab Interpretation 06/08/18 06/08/18 06/08/18 07:35 07:35 08:55 WBC RBC Hgb Hct MCV MCH MCHC RDW Plt Count MPV Absolute Neuts (auto) Neutrophils % Lymphocytes % Monocytes % Eosinophils % Basophils % Nucleated RBC % PT with INR INR PTT (Actin FS) Sodium Potassium Chloride Carbon Dioxide Anion Gap BUN Creatinine Creat Clearance w eGFR Random Glucose Lactic Acid 1.1 Calcium Phosphorus Magnesium Total Bilirubin AST ALT Alkaline Phosphatase Troponin I B-Natriuretic Peptide 223.0 H Total Protein Albumin Lipase Urine Color Straw Urine Appearance Clear Urine pH 5.0 Ur Specific [place] 1.004 L Urine Protein Negative Urine Glucose (UA) Negative Urine Ketones Negative Urine Blood 2+ H Urine Nitrite Negative Urine Bilirubin Negative Urine Urobilinogen Negative Ur Leukocyte Esterase Trace Urine WBC (Auto) 4 Urine RBC (Auto) <1 Ur Epithelial Cells Rare Fld Lyme IgM [place] Lyme Screen IgG & IgM Lyme Antibody Value Lyme IgG W Blot Interp Lyme Ab Interpretation 06/08/18 09:40 WBC RBC Hgb Hct MCV MCH MCHC RDW Plt Count MPV Absolute Neuts (auto) Neutrophils % Lymphocytes % Monocytes % Eosinophils % Basophils % Nucleated RBC % PT with INR INR PTT (Actin FS) Sodium Potassium Chloride Carbon Dioxide Anion Gap BUN Creatinine Creat Clearance w eGFR Random Glucose Lactic Acid Calcium Phosphorus Magnesium Total Bilirubin AST ALT Alkaline Phosphatase Troponin I B-Natriuretic Peptide Total Protein Albumin Lipase Urine Color Urine Appearance Urine pH Ur Specific [place] Urine Protein Urine Glucose (UA) Urine Ketones Urine Blood Urine Nitrite Urine Bilirubin Urine Urobilinogen Ur Leukocyte Esterase Urine WBC (Auto) Urine RBC (Auto) Ur Epithelial Cells Fld Lyme IgM [place] Cancelled Lyme Screen IgG & IgM Cancelled Lyme Antibody Value Cancelled Lyme IgG W Blot Interp Cancelled Lyme Ab Interpretation Cancelled IMP: Acute PE: appears unprovoked Patient is currently hemodynamically stable and appears comfortable on 4 L NC O2. Her BNP is minimally elevated and no troponin leak. COPD: does not appear to be in AE Active smoker: 1 PPD Bibasilar atelectasis due to splinting (also causing hypoxemia) Do not suspect PNA Lovenox 1mg/kg Q12 hours. She has already received her first dose. Eventually would be appropriate for a DOAC. O2 to maintain saturation Age appropriate cancer screening. (Has not had a mammogram in many years) ECHO If evidence of right heart strain may benefit from IR guided thrombectomy Patient can be safely monitored on the cardiac Telemetry unit. If there is a change in her clinical condition or her O2 requirement increases, please notify the ICU team to reassess. BD TX No indication for systemic steroids Pain control Will follow Thank you. Dr Delgado
--- NOTE | 2018-06-08 14:03 | PN ---
Teaching Attending Note Name of Resident: Vincent Meza ATTENDING PHYSICIAN STATEMENT I saw and evaluated the patient. I reviewed the resident's note and discussed the case with the resident. I agree with the resident's findings and plan as documented. SUBJECTIVE: Patient is a 67yo female presented with LLQ pain. started a few days again. Patient is an active smoker that shares one ppd with her for many years. OBJECTIVE: Vital Signs Temperature 98.8 F 06/08/18 07:21 Pulse Rate 122 H 06/08/18 12:35 Respiratory Rate 20 06/08/18 12:35 Blood Pressure 161/97 06/08/18 12:35 O2 Sat by Pulse Oximetry (%) 90 L 06/08/18 12:35 Gen: Awake AAO x 3. Comfortable in NAD HEENT: NCAT, EOMI Neck: supple, minimal jvd Cardio: tachycardic, S1S2 positive, No Murmur, or gallop appreciated. Pulm: cta b/l, bibasilar crackles, no wheezing appreciated Abd: Soft, nondistended, NT,pain in LLQ on deep inspiration ext: no edema. pulses are positive. CBCD WBC 10.6 K/mm3 (4.0-10.0) H 06/08/18 07:35 RBC 4.80 M/mm3 (3.60-5.2) 06/08/18 07:35 Hgb 15.5 GM/dL (10.7-15.3) H 06/08/18 07:35 Hct 44.9 % (32.4-45.2) 06/08/18 07:35 MCV 93.5 fl (80-96) 06/08/18 07:35 MCHC 34.5 g/dl (32.0-36.0) 06/08/18 07:35 RDW 14.0 % (11.6-15.6) 06/08/18 07:35 Plt Count 227 K/MM3 (134-434) 06/08/18 07:35 MPV 8.2 fl (7.5-11.1) 06/08/18 07:35 CMP Sodium 135 mmol/L (136-145) L 06/08/18 07:35 Potassium 4.2 mmol/L (3.5-5.1) 06/08/18 07:35 Chloride 100 mmol/L (98-107) 06/08/18 07:35 Carbon Dioxide 28 mmol/L (21-32) 06/08/18 07:35 Anion Gap 7 MMOL/L (8-16) L 06/08/18 07:35 BUN 10 mg/dL (7-18) 06/08/18 07:35 Creatinine 0.7 mg/dL (0.55-1.3) 06/08/18 07:35 Creat Clearance w eGFR > 60 (>60) 06/08/18 07:35 Random Glucose 96 mg/dL (74-106) 06/08/18 07:35 Calcium 8.4 mg/dL (8.5-10.1) L 06/08/18 07:35 Total Bilirubin 0.6 mg/dL (0.2-1) 06/08/18 07:35 AST 14 U/L (15-37) L 06/08/18 07:35 ALT 19 U/L (13-61) 06/08/18 07:35 Alkaline Phosphatase 69 U/L (45-117) 06/08/18 07:35 Total Protein 7.0 g/dl (6.4-8.2) 06/08/18 07:35 Albumin 3.5 g/dl (3.4-5.0) 06/08/18 07:35 CARDIAC ENZYMES Troponin I < 0.02 ng/ml (0.00-0.05) 06/08/18 07:35 Current Medications Generic Name Dose Route Start Last Admin Trade Name Freq PRN Reason Stop Dose Admin Hydromorphone HCl 2 mg 06/08/18 13:24 06/08/18 13:38 Dilaudid - PO 2 mg Q6H PRN Administration PAIN LEVEL 7 - 10 Home Medications Medication Instructions Recorded Cyclobenzaprine HCl [Flexeril 10 10 mg PO TID PRN #20 tablet 06/05/18 mg] Oxycodone HCl/Acetaminophen 1 each PO QID PRN #12 tablet MDD 4 06/05/18 [Percocet 10-325 mg Tablet] CTA Chest--> Acute central and peripheral pulmonary embolism. Bibasilar, right middle lobe opacities consistent with atelectasis ASSESSMENT AND PLAN: Patient is a 67yo female with no significant past medical history who presented with abdominal pain and was found to have Pulmonary embolism. #Pulmonary Embolism: Lovenox 70mg sq bid, Pulmonary consulted, Echo, monitor in Tele, continue 4litter NC , keep O2 Sat > 90%ECHO If Echo has right heart strain may benefit from IR guided thrombectomy. DVTPx: Lovenox txment
--- NOTE | 2018-06-08 14:38 | HP ---
CHIEF COMPLAINT: Abdominal pain PCP: Dr Frantz Kamara HISTORY OF PRESENT ILLNESS: Pt is a 67 y/o lady with no significant past medical history who presented to [facility] c/o abdominal pain that has been persistent since yesterday. Pt was recently seen in our ED on 06/05/18 2/2 a mechanical fall. Pt was discharged on flexeril and percocet. Today pt endorsing extreme pain in her abdomen and chest , especially on inspiration. Endorses she has not had a bowel movement since her fall on 06/05/18. Pt endorses that the pain medication she was taking at home has partially assuaged her pain. Denies any recent travel. Denies nausea, vomiting, or lightheadedness. Social Hx: Smokes 15 Cigarttes per day "many years". Drinks 23-5 glasses wine on weekends. Works for [employer]. Family Hx: Dad (emphysema), Mother (CHF, DM). Sister M.I. Brother M.I. Surgical Hx: 2 C-Sections ER course was notable for: (1) CTA Chest--> Acute central and peripheral pulmonary embolism. Bibasilar, right middle lobe opacities consistent with atelectasis. (2) Lovenox 80 given in ED (3) Oxygenation noted at 85% on RA PAST SURGICAL HISTORY: Family History: Allergies Sulfa HOME MEDICATIONS: Home Medications Medication Instructions Recorded Cyclobenzaprine HCl [Flexeril 10 10 mg PO TID PRN #20 tablet 06/05/18 mg] Oxycodone HCl/Acetaminophen 1 each PO QID PRN #12 tablet MDD 4 06/05/18 [Percocet 10-325 mg Tablet] REVIEW OF SYSTEMS CONSTITUTIONAL: Absent: fever, chills, diaphoresis, generalized weakness, malaise, loss of appetite, weight change HEENT: Absent: rhinorrhea, nasal congestion, throat pain, throat swelling, difficulty swallowing, mouth swelling, ear pain, eye pain, visual changes CARDIOVASCULAR: Absent: chest pain, syncope, palpitations, irregular heart rate, lightheadedness , peripheral edema RESPIRATORY: PRESENT:: cough, shortness of breath, dyspnea with exertion, PAIN ON INSPIRATION GASTROINTESTINAL: Absent: abdominal pain, abdominal distension, nausea, vomiting, diarrhea, constipation, melena, hematochezia GENITOURINARY: Absent: dysuria, frequency, urgency, hesitancy, hematuria, flank pain, genital pain MUSCULOSKELETAL: Absent: myalgia, arthralgia, joint swelling, back pain, neck pain SKIN: Absent: rash, itching, pallor HEMATOLOGIC/IMMUNOLOGIC: Absent: easy bleeding, easy bruising, lymphadenopathy, frequent infections ENDOCRINE: Absent: unexplained weight gain, unexplained weight loss, heat intolerance, cold intolerance NEUROLOGIC: Absent: headache, focal weakness or paresthesias, dizziness, unsteady gait, seizure, mental status changes, bladder or bowel incontinence PSYCHIATRIC: Absent: anxiety, depression, suicidal or homicidal ideation, hallucinations. PHYSICAL EXAMINATION Vital Signs - 24 hr 06/08/18 06/08/18 06/08/18 07:21 08:45 12:35 Temperature 98.8 F Pulse Rate 112 H Pulse Rate [ 122 H Right] Respiratory 24 H 20 Rate Blood Pressure 169/93 Blood Pressure 161/97 [Right Arm] O2 Sat by Pulse 82 L 90 L 90 L Oximetry (%) GENERAL: AAOx3, Mild distress HEAD: Normal with no signs of trauma. EYES: EOMI Sclera Clear EARS, NOSE, THROAT: MMM NECK: Supple No JVD appreciated LUNGS: Extreme pain on inspiration. unable to auscultate HEART: Tachycardic S1S2 ABDOMEN: Tender to deep palpation MUSCULOSKELETAL: FROM throughout UPPER EXTREMITIES: No CCE LOWER EXTREMITIES: 2+ pitting edema. Left leg >Right leg. NEUROLOGICAL: Cranial nerves II-XII intact. Normal speech. PSYCHIATRIC: Cooperative. Good eye contact. Appropriate mood and affect. SKIN: No CCE Laboratory Results - last 24 hr 06/08/18 06/08/18 06/08/18 07:35 07:35 07:35 WBC 10.6 H RBC 4.80 Hgb 15.5 H Hct 44.9 MCV 93.5 MCH 32.3 MCHC 34.5 RDW 14.0 Plt Count 227 MPV 8.2 Absolute Neuts (auto) 7.7 Neutrophils % 72.1 D Lymphocytes % 20.7 D Monocytes % 5.5 Eosinophils % 1.5 Basophils % 0.2 Nucleated RBC % 0 PT with INR 12.10 INR 1.03 PTT (Actin FS) 28.7 Sodium 135 L Potassium 4.2 Chloride 100 Carbon Dioxide 28 Anion Gap 7 L BUN 10 Creatinine 0.7 Creat Clearance w eGFR > 60 Random Glucose 96 Lactic Acid Calcium 8.4 L Phosphorus 2.9 Magnesium 2.1 Total Bilirubin 0.6 AST 14 L ALT 19 Alkaline Phosphatase 69 Troponin I < 0.02 B-Natriuretic Peptide Total Protein 7.0 Albumin 3.5 Lipase 98 Urine Color Urine Appearance Urine pH Ur Specific [place] Urine Protein Urine Glucose (UA) Urine Ketones Urine Blood Urine Nitrite Urine Bilirubin Urine Urobilinogen Ur Leukocyte Esterase Urine WBC (Auto) Urine RBC (Auto) Ur Epithelial Cells Fld Lyme IgM [place] Lyme Screen IgG & IgM Lyme Antibody Value Lyme IgG W Blot Interp Lyme Ab Interpretation 06/08/18 06/08/18 06/08/18 07:35 07:35 08:55 WBC RBC Hgb Hct MCV MCH MCHC RDW Plt Count MPV Absolute Neuts (auto) Neutrophils % Lymphocytes % Monocytes % Eosinophils % Basophils % Nucleated RBC % PT with INR INR PTT (Actin FS) Sodium Potassium Chloride Carbon Dioxide Anion Gap BUN Creatinine Creat Clearance w eGFR Random Glucose Lactic Acid 1.1 Calcium Phosphorus Magnesium Total Bilirubin AST ALT Alkaline Phosphatase Troponin I B-Natriuretic Peptide 223.0 H Total Protein Albumin Lipase Urine Color Straw Urine Appearance Clear Urine pH 5.0 Ur Specific [place] 1.004 L Urine Protein Negative Urine Glucose (UA) Negative Urine Ketones Negative Urine Blood 2+ H Urine Nitrite Negative Urine Bilirubin Negative Urine Urobilinogen Negative Ur Leukocyte Esterase Trace Urine WBC (Auto) 4 Urine RBC (Auto) <1 Ur Epithelial Cells Rare Fld Lyme IgM [place] Lyme Screen IgG & IgM Lyme Antibody Value Lyme IgG W Blot Interp Lyme Ab Interpretation 06/08/18 09:40 WBC RBC Hgb Hct MCV MCH MCHC RDW Plt Count MPV Absolute Neuts (auto) Neutrophils % Lymphocytes % Monocytes % Eosinophils % Basophils % Nucleated RBC % PT with INR INR PTT (Actin FS) Sodium Potassium Chloride Carbon Dioxide Anion Gap BUN Creatinine Creat Clearance w eGFR Random Glucose Lactic Acid Calcium Phosphorus Magnesium Total Bilirubin AST ALT Alkaline Phosphatase Troponin I B-Natriuretic Peptide Total Protein Albumin Lipase Urine Color Urine Appearance Urine pH Ur Specific [place] Urine Protein Urine Glucose (UA) Urine Ketones Urine Blood Urine Nitrite Urine Bilirubin Urine Urobilinogen Ur Leukocyte Esterase Urine WBC (Auto) Urine RBC (Auto) Ur Epithelial Cells Fld Lyme IgM [place] Cancelled Lyme Screen IgG & IgM Cancelled Lyme Antibody Value Cancelled Lyme IgG W Blot Interp Cancelled Lyme Ab Interpretation Cancelled ASSESSMENT/PLAN: Pt is a 67 y/o lady with no significant past medical history who presented to [facility] c/o abdominal pain that has been persistent since yesterday. Found to desat to mid 80's on RA in ED. #Pulmonary Embolism -CTA Chest--> Acute central and peripheral pulmonary embolism. Bibasilar, right middle lobe opacities consistent with atelectasis. -Lovenox 80 mg In ED -Pulmonary Dr Delgado on board. -Echo -Tele - Lovenox 70 BID. Pt's weight 68.039 KG. -NC 4 L. To maintain O2 Sat > 90% #FEN No Fluids Monitor Electrolytes Regular Diet #DVT ppx: Lovenox SQ 70 BID #Dispo: Tele Visit type - Emergency Visit Emergency Visit: Yes ED Registration Date: 06/08/18 Care time: The patient presented to the Emergency Department on the above date and was hospitalized for further evaluation of their emergent condition. - New Patient This patient is new to me today: Yes Date on this admission: 06/08/18 - Critical Care Critical Care patient: No
[2018-06-08] MEDS ORDERED: IPRATROPIUM BR 0.02% 0.5 MG/2.5 ML VIAL.NEB. NEB ONE (16:08)
[2018-06-08] MEDS ORDERED: ACETAMINOPHEN 325 MG TABLET (FP) PO ONE (19:15)
[2018-06-08] MEDS: IPRATROPIUM BR 0.02% 0.5 MG/2.5 ML VIAL.NEB. NEB SCH (20:09)
[2018-06-08] MEDS ORDERED: MORPHINE SULFATE 2 MG/ML VIAL IVPUSH PRN (21:28)
[2018-06-08] MEDS: ENOXAPARIN NA (PORCINE) 80 MG/0.8 ML DISP.SYRIN SQ SCH (21:30)
[2018-06-09] MEDS: IPRATROPIUM BR 0.02% 0.5 MG/2.5 ML VIAL.NEB. NEB SCH ×3 (07:20→20:24)
[2018-06-09 07:37] LABS: HEMOGLOBIN 14.2 GM/dL (10.7-15.3); MCH 32.2 pg (25.7-33.7); MCHC 34.7 g/dl (32.0-36.0); MEAN CELL VOLUME 92.9 fl (80-96); MEAN PLT VOLUME 8.4 fl (7.5-11.1); PLATELET COUNT 197 K/MM3 (134-434); RBC 4.42 M/mm3 (3.60-5.2); RDW 13.4 % (11.6-15.6); WHITE BLOOD COUNT 10.5 K/mm3 (4.0-10.0)
[2018-06-09 07:48] LABS: ANION GAP 8 MMOL/L (8-16); BLOOD UREA NITROGEN 9 mg/dL (7-18); CALCIUM 8.3 mg/dL (8.5-10.1); CHLORIDE 98 mmol/L (98-107); CO2 29 mmol/L (21-32); CREATININE 0.7 mg/dL (0.55-1.3); GLUCOSE,RANDOM 96 mg/dL (74-106); PHOSPHOROUS 3.2 mg/dL (2.5-4.9); POTASSIUM 4.3 mmol/L (3.5-5.1); SODIUM 135 mmol/L (136-145)
[2018-06-09] MEDS: ENOXAPARIN NA (PORCINE) 80 MG/0.8 ML DISP.SYRIN SQ SCH ×2 (09:08→21:22)
[2018-06-09] MEDS ORDERED: DOCUSATE SODIUM 100 MG CAPSULE (FP) PO ONE (10:30)
[2018-06-09] MEDS ORDERED: GLYCERIN 1 RECTAL SUPPOSITORY, ADULT PR ONE (10:32)
[2018-06-09] MEDS ORDERED: morphine SULFATE 4 MG/ML VIAL IVPUSH PRN (10:33)
--- NOTE | 2018-06-09 12:02 | PN ---
Progress Note, Physician History of Present Illness: pulmonary alert,feeling better,less dyspneic n nasal cannula - Current Medication List Current Medications: Active Medications Docusate Sodium (Colace -) 300 mg PO HS [facility] Enoxaparin Sodium (Lovenox -) 70 mg SQ BID [facility] Last Admin: 06/09/18 09:08 Dose: 70 mg Ipratropium [place] (Atrovent 0.02% Nebulizer -) 1 amp NEB RTID [facility] Last Admin: 06/09/18 07:20 Dose: 1 amp Morphine Sulfate (Morphine Sulfate) 4 mg IVPUSH Q3H PRN PRN Reason: PAIN LEVEL 6-10 - Objective Vital Signs: Vital Signs Temperature 99 F 06/09/18 10:00 Pulse Rate 90 06/09/18 10:00 Respiratory Rate 20 06/09/18 10:00 Blood Pressure 133/83 06/09/18 10:00 O2 Sat by Pulse Oximetry (%) 93 L 06/09/18 09:00 Constitutional: Yes: Well Nourished, Calm Eyes: Yes: WNL HENT: Yes: WNL Neck: Yes: WNL Cardiovascular: Yes: Regular Rate and Rhythm, S1, S2 Respiratory: Yes: CTA Bilaterally Gastrointestinal: Yes: Normal Bowel Sounds, Soft Extremities: Yes: WNL Edema: Yes Labs: CBC, BMP 06/09/18 06:20 06/09/18 06:20 INR, PTT INR 1.03 (0.83-1.09) 06/08/18 07:35 Problem List - Problems (1) Hypoxia Code(s): R09.02 - HYPOXEMIA (2) Peripheral edema Code(s): R60.9 - EDEMA, UNSPECIFIED (3) Pulmonary embolism Code(s): I26.99 - OTHER PULMONARY EMBOLISM WITHOUT ACUTE COR PULMONALE (4) Respiratory distress Code(s): R06.03 - ACUTE RESPIRATORY DISTRESS (5) Fall Code(s): W19.XXXA - UNSPECIFIED FALL, INITIAL ENCOUNTER Qualifiers: Encounter type: initial encounter Qualified Code(s): W19.XXXA - Unspecified fall, initial encounter Assessment/Plan IMP: Acute PE: appears unprovoked COPD: does not appear to be in AE Active smoker: 1 PPD Bibasilar atelectasis due to splinting (also causing hypoxemia) Do not suspect PNA AC O2 to maintain saturation Age appropriate cancer screening. (Has not had a mammogram in many years) ECHO If evidence of right heart strain may benefit from IR guided thrombectomy If there is a change in her clinical condition or her O2 requirement increases , please notify the ICU team to reassess. BD TX Pain control DR GODDARD
--- NOTE | 2018-06-09 14:37 | ECHO ---
Name: ACACIA ROMEO Exam:Adult Echocardiogram Study Date: 06/09/2018 11:48 AM Age: 67 yrs Reason For Study: pulm embolism Height: 66 in Weight: 150 lb BSA: 1.8 m2 MMode/2D Measurements & Calculations IVSd: 1.1 cm Ao root diam: 2.9 cm LVIDd: 3.4 cm LA dimension: 3.3 cm LVIDs: 2.5 cm ACS: 1.7 cm LVPWd: 0.83 cm IVSs: 1.3 cm LVPWs: 1.3 cm EDV(Teich): 47.3 ml ESV(Teich): 22.9 ml Doppler Measurements & Calculations MV E max rajesh: 52.8 cm/sec Ao V2 max: 137.1 cm/sec MV A max rajesh: 87.9 cm/sec Ao max P.5 mmHg MV E/A: 0.60 Ao V2 mean: 100.8 cm/sec Ao mean P.4 mmHg Ao V2 VTI: 23.4 cm TR max rajesh: 258.4 cm/sec Med Peak E' Rajesh: 8.9 cm/sec TR max P.7 mmHg Med E/e': 6.0 Lat Peak E' Rajesh: 6.6 cm/sec Lat E/e': 8.0 Procedure A complete two-dimensional transthoracic echocardiogram was performed (2D, M-mode, Doppler and color flow Doppler). Technically limited study. Left Ventricle The left ventricle is normal in size. Left ventricular systolic function is moderately reduced. Eject ion Fraction = 35-40%. E/A reversal consistent with but not diagnostic of poor LV compliance. There is mi ld to moderate global hypokinesis of the left ventricle. Right Ventricle The right ventricle is normal size. The right ventricular systolic function is mildly reduced. Atria The left atrial size is normal. Right atrial size is normal. Mitral Valve There is mild mitral annular calcification. There is no mitral regurgitation noted. Tricuspid Valve The tricuspid valve is normal in structure and function. There is mild to moderate tricuspid regurgit ation. Pulmonary artery systolic pressure is at least 28 mmHg if RA pressure is assumed 3 mmHg. Aortic Valve There is mild aortic sclerosis.;. No aortic regurgitation is present. Pulmonic Valve The pulmonic valve is not well visualized. Great Vessels The aortic root is normal size. Pericardium/Pleura There is no pericardial effusion. Interpretation Summary Technically limited study The left ventricle is normal in size. Left ventricular systolic function is moderately reduced. There is mild to moderate global hypokinesis of the left ventricle. Ejection Fraction = 35-40%. E/A reversal consistent with but not diagnostic of poor LV compliance The right ventricular systolic function is mildly reduced. The left atrial size is normal. Right atrial size is normal. There is mild mitral annular calcification. There is mild to moderate tricuspid regurgitation. Pulmonary artery systolic pressure is at least 28 mmHg if RA pressure is assumed 3 mmHg There is mild aortic sclerosis.; There is no pericardial effusion. Previous study is not available for comparison Demetri Tripp MD 06/09/2018 02:37 PM
--- NOTE | 2018-06-09 17:36 | PN ---
Teaching Attending Note Name of Resident: Vincent Meza ATTENDING PHYSICIAN STATEMENT I saw and evaluated the patient. I reviewed the resident's note and discussed the case with the resident. I agree with the resident's findings and plan as documented. SUBJECTIVE: Patient is slightly better. pleuretic chest pain when taking deep breaths. OBJECTIVE: Vital Signs Temperature 98.5 F 06/09/18 13:00 Pulse Rate 108 H 06/09/18 13:00 Respiratory Rate 16 06/09/18 13:00 Blood Pressure 156/86 06/09/18 13:00 O2 Sat by Pulse Oximetry (%) 93 L 06/09/18 09:00 Gen: Awake AAO x 3. Comfortable in NAD HEENT: NCAT, EOMI Neck: supple, No JVD Chest: Decreased BS at the bases Cardio: tachycardic, S1S2 positive, No Murmur, or gallop appreciated. Pulm: cta b/l, bibasilar crackles, no wheezing appreciated Abd: Soft, nondistended, NT, pain in LuQ on deep inspiration ext: no edema. pulses are positive CBCD WBC 10.5 K/mm3 (4.0-10.0) H 06/09/18 06:20 RBC 4.42 M/mm3 (3.60-5.2) 06/09/18 06:20 Hgb 14.2 GM/dL (10.7-15.3) 06/09/18 06:20 Hct 41.0 % (32.4-45.2) 06/09/18 06:20 MCV 92.9 fl (80-96) 06/09/18 06:20 MCHC 34.7 g/dl (32.0-36.0) 06/09/18 06:20 RDW 13.4 % (11.6-15.6) 06/09/18 06:20 Plt Count 197 K/MM3 (134-434) 06/09/18 06:20 MPV 8.4 fl (7.5-11.1) 06/09/18 06:20 CMP Sodium 135 mmol/L (136-145) L 06/09/18 06:20 Potassium 4.3 mmol/L (3.5-5.1) 06/09/18 06:20 Chloride 98 mmol/L (98-107) 06/09/18 06:20 Carbon Dioxide 29 mmol/L (21-32) 06/09/18 06:20 Anion Gap 8 MMOL/L (8-16) 06/09/18 06:20 BUN 9 mg/dL (7-18) 06/09/18 06:20 Creatinine 0.7 mg/dL (0.55-1.3) 06/09/18 06:20 Creat Clearance w eGFR > 60 (>60) 06/09/18 06:20 Random Glucose 96 mg/dL (74-106) 06/09/18 06:20 Calcium 8.3 mg/dL (8.5-10.1) L 06/09/18 06:20 Total Bilirubin 0.6 mg/dL (0.2-1) 06/08/18 07:35 AST 14 U/L (15-37) L 06/08/18 07:35 ALT 19 U/L (13-61) 06/08/18 07:35 Alkaline Phosphatase 69 U/L (45-117) 06/08/18 07:35 Total Protein 7.0 g/dl (6.4-8.2) 06/08/18 07:35 Albumin 3.5 g/dl (3.4-5.0) 06/08/18 07:35 CARDIAC ENZYMES Troponin I < 0.02 ng/ml (0.00-0.05) 06/08/18 07:35 Current Medications Generic Name Dose Route Start Last Admin Trade Name Freq PRN Reason Stop Dose Admin Docusate Sodium 300 mg 06/09/18 22:00 Colace - PO HS MATTIE Enoxaparin Sodium 70 mg 06/08/18 22:00 06/09/18 09:08 Lovenox - SQ 70 mg BID MATTIE Administration Ipratropium [place] 1 amp 06/08/18 20:00 06/09/18 14:00 Atrovent 0.02% Nebulizer - NEB Not Given RTID MATTIE Morphine Sulfate 4 mg 06/09/18 10:33 Morphine Sulfate IVPUSH Q3H PRN PAIN LEVEL 6-10 Home Medications Medication Instructions Recorded Cyclobenzaprine HCl [Flexeril 10 10 mg PO TID PRN #20 tablet 06/05/18 mg] Oxycodone HCl/Acetaminophen 1 each PO QID PRN #12 tablet MDD 4 06/05/18 [Percocet 10-325 mg Tablet] CTA Chest--> Acute central and peripheral pulmonary embolism. Bibasilar, right middle lobe opacities consistent with atelectasis ASSESSMENT AND PLAN: Patient is a 67yo female with no significant past medical history who presented with abdominal pain and was found to have Pulmonary embolism. #Pulmonary Embolism: Lovenox 70mg sq bid, Pulmonary consult appreciated , Echo result reviewed , no strain , continue to monitor in Tele, continue 4litter NC , keep O2 Sat > 93%ECHO : EJF 35-40% , incentive spirometer. will get cardio evaluation since echo is positive for hypokinesis of LV. # Hypokinesis of LV on the echo with EJF of 35-40% will get cardio evaluation DVTPx: Lovenox txment
--- NOTE | 2018-06-09 17:52 | PN ---
Physical Exam: SUBJECTIVE: Patient seen and examined at bedside. No acute events overnight. at bedside. OBJECTIVE: Vital Signs Period Temp Pulse Resp BP Sys/Regalado Pulse Ox Last 24 Hr 97.7 F-100.4 F 90-119 16-20 133-156/78-97 90-93 GENERAL: No acue distress. HEAD: Normal with no signs of trauma. EYES: EOMI Sclera Clear EARS, NOSE, THROAT: MMM NECK: Supple No JVD appreciated LUNGS: CTAB HEART: Tachycardic S1S2 ABDOMEN: Tender to deep palpation MUSCULOSKELETAL: FROM throughout UPPER EXTREMITIES: No CCE LOWER EXTREMITIES: 1 + edema b/l NEUROLOGICAL: Cranial nerves II-XII intact. Normal speech. PSYCHIATRIC: Cooperative. Good eye contact. Appropriate mood and affect. SKIN: No CCE Laboratory Results - last 24 hr 06/09/18 06/09/18 06:20 06:20 WBC 10.5 H RBC 4.42 Hgb 14.2 Hct 41.0 MCV 92.9 MCH 32.2 MCHC 34.7 RDW 13.4 Plt Count 197 MPV 8.4 Sodium 135 L Potassium 4.3 Chloride 98 Carbon Dioxide 29 Anion Gap 8 BUN 9 Creatinine 0.7 Creat Clearance w eGFR > 60 Random Glucose 96 Calcium 8.3 L Phosphorus 3.2 Magnesium 2.0 Active Medications Generic Name Dose Route Start Last Admin Trade Name Freq PRN Reason Stop Dose Admin Acetaminophen 650 mg 06/09/18 17:45 Tylenol - PO Q6H PRN Fever Or Pain Docusate Sodium 300 mg 06/09/18 22:00 Colace - PO HS MATTIE Enoxaparin Sodium 70 mg 06/08/18 22:00 06/09/18 09:08 Lovenox - SQ 70 mg BID MATTIE Administration Ipratropium [place] 1 amp 06/08/18 20:00 06/09/18 14:00 Atrovent 0.02% Nebulizer - NEB Not Given RTID MATTIE Morphine Sulfate 4 mg 06/09/18 10:33 Morphine Sulfate IVPUSH Q3H PRN PAIN LEVEL 6-10 ASSESSMENT/PLAN: Pt is a 67 y/o lady with no significant past medical history who presented to [facility] c/o abdominal pain that has been persistent since yesterday. Found to desat to mid 80's on RA in ED. #Pulmonary Embolism -CTA Chest--> Acute central and peripheral pulmonary embolism. Bibasilar, right middle lobe opacities consistent with atelectasis. -Lovenox 80 mg In ED -Pulmonary Dr Delgado on board. If oxygen requirements increase or signs of right heart strain, may need I.R guided thrombectomy. -Echo---> No pericardial effusion. EF 35-40%. -Tele - Lovenox 70 BID. Pt's weight 68.039 KG. -NC 4 L. To maintain O2 Sat > 90% #FEN No Fluids Monitor Electrolytes Regular Diet #DVT ppx: Lovenox SQ 70 BID #Dispo: Tele Visit type - Emergency Visit Emergency Visit: Yes ED Registration Date: 06/08/18 Care time: The patient presented to the Emergency Department on the above date and was hospitalized for further evaluation of their emergent condition. - New Patient This patient is new to me today: No - Critical Care Critical Care patient: No - Discharge Referral Referred to [facility] Med [facility] No
[2018-06-09] MEDS: ACETAMINOPHEN 325 MG TABLET (FP) PO PRN (18:12)
[2018-06-09] MEDS: DOCUSATE SODIUM 100 MG CAPSULE (FP) PO SCH (21:22)
[2018-06-10] MEDS ORDERED: guaiFENesin 200 MG/10 ML 10 ML UNIT-DOSE CUPS PO ONE ×2 (01:25→20:52)
[2018-06-10] MEDS: ACETAMINOPHEN 325 MG TABLET (FP) PO PRN ×2 (01:33→16:09)
[2018-06-10 07:16] LABS: HEMOGLOBIN 13.4 GM/dL (10.7-15.3); MCH 32.7 pg (25.7-33.7); MCHC 35.3 g/dl (32.0-36.0); MEAN CELL VOLUME 92.6 fl (80-96); MEAN PLT VOLUME 8.2 fl (7.5-11.1); PLATELET COUNT 183 K/MM3 (134-434); RDW 13.7 % (11.6-15.6); WHITE BLOOD COUNT 8.5 K/mm3 (4.0-10.0)
[2018-06-10 08:37] LABS: ANION GAP 8 MMOL/L (8-16); BLOOD UREA NITROGEN 11 mg/dL (7-18); CALCIUM 8.1 mg/dL (8.5-10.1); CHLORIDE 102 mmol/L (98-107); CO2 28 mmol/L (21-32); CREATININE 0.7 mg/dL (0.55-1.3); GLUCOSE,RANDOM 84 mg/dL (74-106); MAGNESIUM 2.2 mg/dL (1.8-2.4); PHOSPHOROUS 2.8 mg/dL (2.5-4.9); POTASSIUM 3.8 mmol/L (3.5-5.1); SODIUM 139 mmol/L (136-145)
[2018-06-10] MEDS: IPRATROPIUM BR 0.02% 0.5 MG/2.5 ML VIAL.NEB. NEB SCH ×3 (08:39→20:10)
--- NOTE | 2018-06-10 08:49 | PN ---
Physical Exam: SUBJECTIVE: Patient seen and examined at bedside. Febrile overnight at 100.8. OBJECTIVE: Vital Signs Period Temp Pulse Resp BP Sys/Regalado Pulse Ox Last 24 Hr 98.5 F-100.8 F 73-108 16-20 123-156/66-88 93-96 GENERAL: NAD Resting in bed HEAD: Normal with no signs of trauma. EYES: EOMI Sclera Clear EARS, NOSE, THROAT: MMM NECK: Supple No JVD appreciated LUNGS: Decreased BS @ Bases. HEART: Tachycardic S1S2 ABDOMEN: nondistended nontender MUSCULOSKELETAL: FROM throughout UPPER EXTREMITIES: No CCE LOWER EXTREMITIES: 1 + edema b/l NEUROLOGICAL: Cranial nerves II-XII intact. Normal speech. PSYCHIATRIC: Cooperative. Good eye contact. Appropriate mood and affect. SKIN: No CCE Laboratory Results - last 24 hr 06/10/18 06/10/18 06:30 06:30 WBC 8.5 RBC 4.10 Hgb 13.4 Hct 38.0 MCV 92.6 MCH 32.7 MCHC 35.3 RDW 13.7 Plt Count 183 MPV 8.2 Sodium 139 Potassium 3.8 Chloride 102 Carbon Dioxide 28 Anion Gap 8 BUN 11 Creatinine 0.7 Creat Clearance w eGFR > 60 Random Glucose 84 Calcium 8.1 L Phosphorus 2.8 Magnesium 2.2 Active Medications Generic Name Dose Route Start Last Admin Trade Name Freq PRN Reason Stop Dose Admin Acetaminophen 650 mg 06/09/18 17:45 06/10/18 01:33 Tylenol - PO 650 mg Q6H PRN Administration Fever Or Pain Docusate Sodium 300 mg 06/09/18 22:00 06/09/18 21:22 Colace - PO 300 mg HS MATTIE Administration Enoxaparin Sodium 70 mg 06/08/18 22:00 06/09/18 21:22 Lovenox - SQ 70 mg BID MATTIE Administration Ipratropium [place] 1 amp 06/08/18 20:00 06/10/18 08:39 Atrovent 0.02% Nebulizer - NEB 1 amp RTID MATTIE Administration Morphine Sulfate 4 mg 06/09/18 10:33 Morphine Sulfate IVPUSH Q3H PRN PAIN LEVEL 6-10 Polyethylene Glycol 17 gm 06/10/18 10:00 Miralax (For Daily Use) - PO BID MATTIE Senna 1 tab 06/10/18 10:00 Senna - PO BID MATTIE ASSESSMENT/PLAN: Pt is a 67 y/o lady with no significant past medical history who presented to [facility] c/o abdominal pain that has been persistent since yesterday. Found to desat to mid 80's on RA in ED. #Pulmonary Embolism -CTA Chest--> Acute central and peripheral pulmonary embolism. Bibasilar, right middle lobe opacities consistent with atelectasis. -Lovenox 80 mg In ED -Pulmonary Dr Delgado on board. If oxygen requirements increase or signs of right heart strain, may need I.R guided thrombectomy. -Echo---> No pericardial effusion. EF 35-40%. -Tele - Lovenox 70 BID. Pt's weight 68.039 KG. Lovenox changed to Eliquis 5 MG PO BID. Spoke with Cardiology, Dr Mireles. -NC 4 L. To maintain O2 Sat > 90% Cardiology on board, Dr Mireles. Recommends Beta Ranjan and EVELYN-i. Started Lisinopril 2.5 mg daily. #FEN No Fluids Monitor Electrolytes Regular Diet #DVT ppx: Eliquis 5 MG PO BID #Dispo: Tele Visit type - Emergency Visit Emergency Visit: Yes ED Registration Date: 06/08/18 Care time: The patient presented to the Emergency Department on the above date and was hospitalized for further evaluation of their emergent condition. - New Patient This patient is new to me today: No - Critical Care Critical Care patient: No - Discharge Referral Referred to [facility] Med [facility].C.: No
--- NOTE | 2018-06-10 08:54 | PN ---
Teaching Attending Note Name of Resident: Vincent Meza ATTENDING PHYSICIAN STATEMENT I saw and evaluated the patient. I reviewed the resident's note and discussed the case with the resident. I agree with the resident's findings and plan as documented. SUBJECTIVE: Patient is feeling better, less pleuretic chest pain on the left, no fever or chills, less short of breath. OBJECTIVE: Vital Signs Temperature 99.0 F 06/10/18 06:00 Pulse Rate 73 06/10/18 06:00 Respiratory Rate 20 06/10/18 06:00 Blood Pressure 123/66 06/10/18 06:00 O2 Sat by Pulse Oximetry (%) 96 06/09/18 21:00 Gen: Awake AAO x 3. Comfortable in NAD HEENT: NCAT, EOMI Neck: supple, No JVD Chest: Decreased BS at the bases Cardio: RRR, S1S2 positive, No Murmur, or gallop appreciated. Pulm: positive for Rhonchi, L>R ,no wheezing appreciated Abd: Soft, nondistended, NT, pain in LuQ on deep inspiration ext: no edema. pulses are positive CBCD WBC 8.5 K/mm3 (4.0-10.0) 06/10/18 06:30 RBC 4.10 M/mm3 (3.60-5.2) 06/10/18 06:30 Hgb 13.4 GM/dL (10.7-15.3) 06/10/18 06:30 Hct 38.0 % (32.4-45.2) 06/10/18 06:30 MCV 92.6 fl (80-96) 06/10/18 06:30 MCHC 35.3 g/dl (32.0-36.0) 06/10/18 06:30 RDW 13.7 % (11.6-15.6) 06/10/18 06:30 Plt Count 183 K/MM3 (134-434) 06/10/18 06:30 MPV 8.2 fl (7.5-11.1) 06/10/18 06:30 CMP Sodium 139 mmol/L (136-145) 06/10/18 06:30 Potassium 3.8 mmol/L (3.5-5.1) 06/10/18 06:30 Chloride 102 mmol/L (98-107) 06/10/18 06:30 Carbon Dioxide 28 mmol/L (21-32) 06/10/18 06:30 Anion Gap 8 MMOL/L (8-16) 06/10/18 06:30 BUN 11 mg/dL (7-18) 06/10/18 06:30 Creatinine 0.7 mg/dL (0.55-1.3) 06/10/18 06:30 Creat Clearance w eGFR > 60 (>60) 06/10/18 06:30 Random Glucose 84 mg/dL (74-106) 06/10/18 06:30 Calcium 8.1 mg/dL (8.5-10.1) L 06/10/18 06:30 Total Bilirubin 0.6 mg/dL (0.2-1) 06/08/18 07:35 AST 14 U/L (15-37) L 06/08/18 07:35 ALT 19 U/L (13-61) 06/08/18 07:35 Alkaline Phosphatase 69 U/L (45-117) 06/08/18 07:35 Total Protein 7.0 g/dl (6.4-8.2) 06/08/18 07:35 Albumin 3.5 g/dl (3.4-5.0) 06/08/18 07:35 CARDIAC ENZYMES Troponin I < 0.02 ng/ml (0.00-0.05) 06/08/18 07:35 Current Medications Generic Name Dose Route Start Last Admin Trade Name Freq PRN Reason Stop Dose Admin Acetaminophen 650 mg 06/09/18 17:45 06/10/18 01:33 Tylenol - PO 650 mg Q6H PRN Administration Fever Or Pain Docusate Sodium 300 mg 06/09/18 22:00 06/09/18 21:22 Colace - PO 300 mg HS MATTIE Administration Enoxaparin Sodium 70 mg 06/08/18 22:00 06/09/18 21:22 Lovenox - SQ 70 mg BID MATTIE Administration Ipratropium [place] 1 amp 06/08/18 20:00 06/10/18 08:39 Atrovent 0.02% Nebulizer - NEB 1 amp RTID MATTIE Administration Morphine Sulfate 4 mg 06/09/18 10:33 Morphine Sulfate IVPUSH Q3H PRN PAIN LEVEL 6-10 Polyethylene Glycol 17 gm 06/10/18 10:00 Miralax (For Daily Use) - PO BID [facility] Senna 1 tab 06/10/18 10:00 Senna - PO BID [facility] Home Medications Medication Instructions Recorded Cyclobenzaprine HCl [Flexeril 10 10 mg PO TID PRN #20 tablet 06/05/18 mg] Oxycodone HCl/Acetaminophen 1 each PO QID PRN #12 tablet MDD 4 06/05/18 [Percocet 10-325 mg Tablet] CTA Chest--> Acute central and peripheral pulmonary embolism. Bibasilar, right middle lobe opacities consistent with atelectasis ASSESSMENT AND PLAN: Patient is a 67yo female with no significant past medical history who presented with abdominal pain and was found to have Pulmonary embolism. #Pulmonary Embolism: s/p Lovenox, will start Eliquis 5mg po daily, Pulmonary consult appreciated , Echo result reviewed , no strain , continue to monitor in Tele, continue 4litter NC , keep O2 Sat > 93%ECHO : EJF 35-40% , incentive spirometer. cardio and pulm. consult appreciated . # Acute over chronic Systolic CHF:with Mild-moderately reduced LVEF of 35-40%. will start ACEI. As per Dr. mclaughlin to start metoprolol if no contraindications (pt denies hx bronchial asthma). Plans to start spironolactone in the near future if BP, BUN/Cr remain stable on ACEI and beta vannessa. Plan on ruling ouf CAD with stress MIBI or coronary angiogram once stable from pulmonary viewpoint. DVTPx: Eliquis tx for PE
[2018-06-10] MEDS: POLYETHYLENE GLYCOL 3350 119 GM BTL PO SCH ×2 (09:26→21:34)
[2018-06-10] MEDS: SENNOSIDES 8.6MG TABLET (FP) PO SCH ×2 (09:26→21:34)
[2018-06-10] MEDS: ENOXAPARIN NA (PORCINE) 80 MG/0.8 ML DISP.SYRIN SQ SCH (09:27)
--- NOTE | 2018-06-10 12:32 | PN ---
Progress Note, Physician History of Present Illness: PULMONARY ALERT,LESS DYSPNEIC,-CP. - Current Medication List Current Medications: Active Medications Acetaminophen (Tylenol -) 650 mg PO Q6H PRN PRN Reason: Fever Or Pain Last Admin: 06/10/18 01:33 Dose: 650 mg Docusate Sodium (Colace -) 300 mg PO HS [facility] Last Admin: 06/09/18 21:22 Dose: 300 mg Enoxaparin Sodium (Lovenox -) 70 mg SQ BID [facility] Last Admin: 06/10/18 09:27 Dose: 70 mg Ipratropium [place] (Atrovent 0.02% Nebulizer -) 1 amp NEB RTID [facility] Last Admin: 06/10/18 08:39 Dose: 1 amp Morphine Sulfate (Morphine Sulfate) 4 mg IVPUSH Q3H PRN PRN Reason: PAIN LEVEL 6-10 Polyethylene Glycol (Miralax (For Daily Use) -) 17 gm PO BID [facility] Last Admin: 06/10/18 09:26 Dose: 17 gm Senna (Senna -) 1 tab PO BID [facility] Last Admin: 06/10/18 09:26 Dose: 1 tab - Objective Vital Signs: Vital Signs Temperature 99.0 F 06/10/18 06:00 Pulse Rate 73 06/10/18 06:00 Respiratory Rate 20 06/10/18 06:00 Blood Pressure 123/66 06/10/18 06:00 O2 Sat by Pulse Oximetry (%) 96 06/09/18 21:00 Constitutional: Yes: Well Nourished, Calm Eyes: Yes: WNL HENT: Yes: Nasal Congestion Neck: Yes: WNL Cardiovascular: Yes: Regular Rate and Rhythm, S1, S2 Respiratory: Yes: Rhonchi (SCATTERED RHONCHI) Gastrointestinal: Yes: Normal Bowel Sounds, Soft Extremities: Yes: WNL Edema: No Labs: CBC, BMP 06/10/18 06:30 06/10/18 06:30 INR, PTT INR 1.03 (0.83-1.09) 06/08/18 07:35 - ....Imaging Other: Other (ECHO MODERATE LV SYSTOLIC DYSFUNCTION,MILD RV DYSFUNCTION) Problem List - Problems (1) Hypoxia Code(s): R09.02 - HYPOXEMIA (2) Peripheral edema Code(s): R60.9 - EDEMA, UNSPECIFIED (3) Pulmonary embolism Code(s): I26.99 - OTHER PULMONARY EMBOLISM WITHOUT ACUTE COR PULMONALE (4) Respiratory distress Code(s): R06.03 - ACUTE RESPIRATORY DISTRESS (5) Fall Code(s): W19.XXXA - UNSPECIFIED FALL, INITIAL ENCOUNTER Qualifiers: Encounter type: initial encounter Qualified Code(s): W19.XXXA - Unspecified fall, initial encounter Assessment/Plan IMP: Acute PE: appears unprovoked COPD: does not appear to be in AE LV DYSFUNCTION CHD Active smoker: 1 PPD Bibasilar atelectasis due to splinting (also causing hypoxemia) Do not suspect PNA AC O2 to maintain saturation Age appropriate cancer screening. (Has not had a mammogram in many years) BD TX Pain control w/u for hypercoagulable state as outpatient consider Cardiology evaluation DR GODDARD
[2018-06-10] MEDS ORDERED: LEVALBUTEROL HCL 0.63 MG/3 ML VIAL.NEB. IH PRN (12:37)
--- NOTE | 2018-06-10 13:26 | CON.CARD ---
Consult Consult Specialty:: cardiology Reason for Consultation:: bilateral leg edema - History of Present Illness Chief Complaint: A&Ox3; no dyspnea or chest pain; + left sided pain at sit of fall. History of Present Illness: 67y white woman with no known PMHx except 104/09 ppd cigarettes for many years (quit once for two years), presents with abdominal pain for 3 days; for the first time, she is constipated. The patient notes that the abdominal pain is intermittent, seems to come in waves associated with no bowel movement for 3 days since. 3 days ago she was seen in our emergency department after fall down stairs; she had a trauma CT workup that was negative for any acute findings. Patient notes that since then she has some chronic left-sided back and flank pain after the fall which resulted in her mostly lying in bed for 48- 72 hours before returning to the hospital. Patient notes that her abdominal pain is intermittent, nonradiating, worse in the left lower quadrant. No associated fever, chills, nausea, vomiting, dysuria, diarrhea. The patient also denies any chest pain or shortness of breath or hemoptysis. Patient denies HELLER; however notes that she has been largely bed-bound since her fall. No hx of DVT/PE, but sister did of lung disease and "heart failure" in her 50s, and brother had PE and CA in his 50s. Pt says she has been in fine health all her life; she has a physical exam yearly. 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 social history: chronic smoker - History Source History Provided By: Patient, Family Member, Medical Record Limitations to Obtaining History: No Limitations - Past Medical History Cardio/Vascular: Yes: CHF, HTN (not on medications) Reproductive: Yes: Postmenopausal ...: No Psych: Yes: Other. No: Anxiety, Depression - Alcohol/Substance Use Hx Alcohol Use: No - Smoking History Smoking history: Never smoked Have you smoked in the past 12 months: No Aproximately how many cigarettes per day: 20 - Social History Usual Living Arrangement: With Spouse Place of : [place] History of Recent Travel: No Home Medications - Allergies Allergies/Adverse Reactions: Allergies Allergy/AdvReac Type Severity Reaction Status Date / Time No Known Allergies Allergy Verified 06/05/18 11:17 - Home Medications Home Medications: Ambulatory Orders Cyclobenzaprine HCl [Flexeril 10 mg] 10 mg PO TID PRN #20 tablet 06/05/18 Oxycodone HCl/Acetaminophen [Percocet 10-325 mg Tablet] 1 each PO QID PRN #12 tablet MDD 4 06/05/18 Apixaban [Eliquis] 10 mg PO BID 5 Days #10 tablet 06/11/18 Family Disease History - Family Disease History Family Disease History: Heart Disease: Father, Brother (PE; of CA in his 50s; was a smoker), Sister ( of "heart failure" or CA in her 50s; was a smoker) Review of Systems - Review of Systems Constitutional: reports: No Symptoms Eyes: reports: No Symptoms HENT: reports: No Symptoms Neck: reports: No Symptoms Cardiovascular: reports: No Symptoms Respiratory: reports: No Symptoms Gastrointestinal: reports: Abdominal Pain Genitourinary: reports: No Symptoms Breasts: reports: No Symptoms Reported Musculoskeletal: reports: Joint Swelling Integumentary: reports: No Symptoms Neurological: reports: No Symptoms Endocrine: reports: No Symptoms Hematology/Lymphatic: reports: No Symptoms Psychiatric: reports: No Symptoms - Risk Factors Known Risk Factors: Yes: Age, Physical Inactivity, Smoking, Other (bilateral ankle edema (chronic)) Vital Signs: Vital Signs Temperature 99.0 F 06/10/18 06:00 Pulse Rate 73 06/10/18 06:00 Respiratory Rate 20 06/10/18 06:00 Blood Pressure 123/66 06/10/18 06:00 O2 Sat by Pulse Oximetry (%) 96 06/09/18 21:00 Constitutional: Yes: Well Nourished, Severe Distress Eyes: Yes: WNL HENT: Yes: WNL Neck: Yes: WNL Respiratory: Yes: WNL Gastrointestinal: Yes: Soft. No: Tenderness Renal/: No: Anuria Cardiovascular: Yes: Regular Rate and Rhythm JVD: No Carotid Bruit: No PMI: Non-Displaced Heart Sounds: Yes: S1, S2, S4 Musculoskeletal: Yes: WNL Extremities: Yes: WNL Edema: No Peripheral Pulses WNL: Yes Integumentary: Yes: WNL Neurological: Yes: WNL ...Motor Strength: WNL Psychiatric: Yes: WNL - Other Data Labs, Other Data: CBC, BMP 06/10/18 06:30 06/10/18 06:30 INR, PTT INR 1.03 (0.83-1.09) 06/08/18 07:35 Abnormal Lab Results 06/10/18 06:30 Calcium 8.1 L HDL Cholesterol 68 H Imaging - Results Chest X-ray: Image Reviewed Cat Scan: Image Reviewed EKG: Image Reviewed Problem List - Problems (1) Systolic CHF Assessment/Plan: Mild-moderately reduced LVEF of 35-40%. Start ACEI. Start metoprolol if no contraindications (pt denies hx bronchial asthma). Plans to start spironolactone in the near future if BP, BUN/Cr remain stable on ACEI and beta vannessa. Plan on ruling ouf CAD with stress MIBI or coronary angiogram once stable from pulmonary viewpoint. Code(s): I50.20 - UNSPECIFIED SYSTOLIC (CONGESTIVE) HEART FAILURE (2) Smokes cigarettes Assessment/Plan: Pt quit once for two years. She does not want help presently with a patch or pill, saying she has to make up her mind. Code(s): F17.210 - NICOTINE DEPENDENCE, CIGARETTES, UNCOMPLICATED (3) Family history of pulmonary embolism Assessment/Plan: Brother had PE; years later, in his 50s, had an CA (heavy smoker). Sister: heavy smoker; of "heart failure" or CA in her 50s. Code(s): Z82.49 - FAMILY HX OF ISCHEM HEART DIS AND OTH DIS OF THE CIRC SYS (4) Peripheral edema Code(s): R60.9 - EDEMA, UNSPECIFIED (5) Pulmonary embolism Assessment/Plan: On Lovenox; plan to change to PO anticoagulation. Pt denies any past medical hx, and says she goes for annual checkups. She was ?largely immobile for 48-72 hours after falling last week. Family hx PE (brother). Code(s): I26.99 - OTHER PULMONARY EMBOLISM WITHOUT ACUTE COR PULMONALE (6) Tachycardia Code(s): R00.0 - TACHYCARDIA, UNSPECIFIED (7) Fall Code(s): W19.XXXA - UNSPECIFIED FALL, INITIAL ENCOUNTER Qualifiers: Encounter type: initial encounter Qualified Code(s): W19.XXXA - Unspecified fall, initial encounter (8) Low back sprain Code(s): S33.5XXA - SPRAIN OF LIGAMENTS OF LUMBAR SPINE, INITIAL ENCOUNTER Qualifiers: Encounter type: initial encounter Qualified Code(s): S33.5XXA - Sprain of ligaments of lumbar spine, initial encounter (9) Hyperlipidemia Assessment/Plan: hx cholesterol "in the 180s" last year; f/u panel. Code(s): E78.5 - HYPERLIPIDEMIA, UNSPECIFIED
--- NOTE | 2018-06-10 13:52 | EKG ---
Test Reason : Blood Pressure : / mmHG Vent. Rate : 107 BPM Atrial Rate : 107 BPM P-R Int : 154 ms QRS Dur : 114 ms QT Int : 372 ms P-R-T Axes : 052 -09 107 degrees QTc Int : 496 ms SINUS TACHYCARDIA ANTERIOR INFARCT , AGE UNDETERMINED ABNORMAL ECG NO PREVIOUS ECGS AVAILABLE Confirmed by MD Juvenal, Charli ([id number]) on 06/10/2018 1:52:27 PM Referred By: Confirmed By:Charli Sanford MD
[2018-06-10] MEDS ORDERED: LISINOPRIL 5 MG TABLET (FP) PO ONE (15:02)
[2018-06-10 16:19] LABS: CHOLESTEROL 131 mg/dL (50-200); HDL CHOLESTEROL 68 mg/dL (40-60); TRIGLYCERIDES 72 mg/dL (0-150)
--- NOTE | 2018-06-10 21:09 | PN ---
Progress Note (short form) - Note Progress Note: Called by nurse to evaluate infiltrated IV site on right arm. IV catheter was removed. IV site was noted to have dried serous with minimal purulent material with surrounding erythema, no warmth or tenderness. No fevers noted throughout the day. Will apply bacitracin at affected site for now. Watch out for fevers/chills/tenderness on affected site.
[2018-06-10] MEDS: BACITRACIN 15 GM TUBE TOPICAL OINTMENT TP SCH (21:28)
[2018-06-10] MEDS: APIXABAN 5 MG TABLET PO SCH (21:29)
[2018-06-10] MEDS: DOCUSATE SODIUM 100 MG CAPSULE (FP) PO SCH (21:34)
[2018-06-11] MEDS: ACETAMINOPHEN 325 MG TABLET (FP) PO PRN (01:28)
[2018-06-11 06:11] LABS: HEMATOCRIT 37.4 % (32.4-45.2); HEMOGLOBIN 12.9 GM/dL (10.7-15.3); MCHC 34.6 g/dl (32.0-36.0); MEAN CELL VOLUME 92.6 fl (80-96); PLATELET COUNT 196 K/MM3 (134-434); RBC 4.04 M/mm3 (3.60-5.2); RDW 13.6 % (11.6-15.6); WHITE BLOOD COUNT 9.2 K/mm3 (4.0-10.0)
[2018-06-11] MEDS: IPRATROPIUM BR 0.02% 0.5 MG/2.5 ML VIAL.NEB. NEB SCH ×3 (07:10→20:30)
[2018-06-11 08:57] LABS: ANION GAP 6 MMOL/L (8-16); BLOOD UREA NITROGEN 9 mg/dL (7-18); CALCIUM 8.2 mg/dL (8.5-10.1); CHLORIDE 104 mmol/L (98-107); CO2 31 mmol/L (21-32); CREATININE 0.6 mg/dL (0.55-1.3); GLUCOSE,RANDOM 94 mg/dL (74-106); POTASSIUM 3.7 mmol/L (3.5-5.1); SODIUM 140 mmol/L (136-145)
[2018-06-11] MEDS ORDERED: PT OWN MED DRAWER 7, Y5N ONE (09:56)
[2018-06-11] MEDS ORDERED: LISINOPRIL 5 MG TABLET (FP) PO SCH (10:00)
[2018-06-11] MEDS: POLYETHYLENE GLYCOL 3350 119 GM BTL PO SCH ×2 (10:02→22:45)
[2018-06-11] MEDS: APIXABAN 5 MG TABLET PO SCH ×2 (10:05→22:40)
[2018-06-11] MEDS: BACITRACIN 15 GM TUBE TOPICAL OINTMENT TP SCH ×2 (10:06→22:43)
[2018-06-11] MEDS: SENNOSIDES 8.6MG TABLET (FP) PO SCH ×2 (10:08→22:45)
--- NOTE | 2018-06-11 10:58 | PN ---
Progress Note, Physician History of Present Illness: 67y white woman with no known PMHx except 104/09 ppd cigarettes for many years (quit once for two years), presents with abdominal pain for 3 days; for the first time, she is constipated. The patient notes that the abdominal pain is intermittent, seems to come in waves associated with no bowel movement for 3 days since. 3 days ago she was seen in our emergency department after fall down stairs; she had a trauma CT workup that was negative for any acute findings. Patient notes that since then she has some chronic left-sided back and flank pain after the fall which resulted in her mostly lying in bed for 48- 72 hours before returning to the hospital. Patient notes that her abdominal pain is intermittent, nonradiating, worse in the left lower quadrant. No associated fever, chills, nausea, vomiting, dysuria, diarrhea. The patient also denies any chest pain or shortness of breath or hemoptysis. Patient denies HELLER; however notes that she has been largely bed-bound since her fall. No hx of DVT/PE, but sister did of lung disease and "heart failure" in her 50s, and brother had PE and HI in his 50s. Pt says she has been in fine health all her life; she has a physical exam yearly. 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 - Current Medication List Current Medications: Active Medications Acetaminophen (Tylenol -) 650 mg PO Q6H PRN PRN Reason: Fever Or Pain Last Admin: 06/11/18 01:28 Dose: 650 mg Apixaban (Eliquis -) 10 mg PO BID [facility] Stop: 06/17/18 22:00 Last Admin: 06/11/18 10:05 Dose: 10 mg Apixaban (Eliquis -) 5 mg PO BID [facility] Bacitracin (Bacitracin -) 1 applic TP BID [facility] Last Admin: 06/11/18 10:06 Dose: 1 applic Docusate Sodium (Colace -) 300 mg PO HS [facility] Last Admin: 06/10/18 21:34 Dose: Not Given Ipratropium [place] (Atrovent 0.02% Nebulizer -) 1 amp NEB RTID [facility] Last Admin: 06/11/18 07:10 Dose: 1 amp Levalbuterol HCl (Xopenex) 0.63 mg IH Q8H PRN PRN Reason: ASTHMA Lisinopril (Prinivil) 2.5 mg PO DAILY [facility] Last Admin: 06/11/18 10:02 Dose: 2.5 mg Morphine Sulfate (Morphine Sulfate) 4 mg IVPUSH Q3H PRN PRN Reason: PAIN LEVEL 6-10 Polyethylene Glycol (Miralax (For Daily Use) -) 17 gm PO BID [facility] Last Admin: 06/11/18 10:02 Dose: Not Given Senna (Senna -) 1 tab PO BID [facility] Last Admin: 06/11/18 10:08 Dose: Not Given - Objective Vital Signs: Vital Signs Temperature 97.7 F 06/11/18 06:00 Pulse Rate 71 06/11/18 06:00 Respiratory Rate 20 06/11/18 06:00 Blood Pressure 111/75 06/11/18 06:00 O2 Sat by Pulse Oximetry (%) 96 06/10/18 21:00 Eyes: Yes: WNL, Conjunctiva Clear, EOM Intact HENT: Yes: WNL, Atraumatic, Normocephalic Neck: Yes: WNL, Supple, Trachea Midline Cardiovascular: Yes: WNL, Regular Rate and Rhythm Respiratory: Yes: WNL, Regular, CTA Bilaterally Gastrointestinal: Yes: WNL, Normal Bowel Sounds Genitourinary: Yes: WNL Musculoskeletal: Yes: WNL Extremities: Yes: WNL Edema: No Integumentary: Yes: WNL Neurological: Yes: WNL, Alert, Oriented ...Motor Strength: WNL Psychiatric: Yes: WNL Labs: CBC, BMP 06/11/18 06:00 06/11/18 07:44 INR, PTT INR 1.03 (0.83-1.09) 06/08/18 07:35 Assessment/Plan - Problems (1) Systolic CHF Assessment/Plan: Mild-moderately reduced LVEF of 35-40%. Start ACEI. Start metoprolol if no contraindications (pt denies hx bronchial asthma). Plans to start spironolactone in the near future if BP, BUN/Cr remain stable on ACEI and beta vannessa. Plan on ruling ouf CAD with stress MIBI or coronary angiogram once stable from pulmonary viewpoint. Code(s): I50.20 - UNSPECIFIED SYSTOLIC (CONGESTIVE) HEART FAILURE (2) Smokes cigarettes Assessment/Plan: Pt quit once for two years. She does not want help presently with a patch or pill, saying she has to make up her mind. Code(s): F17.210 - NICOTINE DEPENDENCE, CIGARETTES, UNCOMPLICATED (3) Family history of pulmonary embolism Assessment/Plan: Brother had PE; years later, in his 50s, had an HI (heavy smoker). Sister: heavy smoker; of "heart failure" or HI in her 50s. Code(s): Z82.49 - FAMILY HX OF ISCHEM HEART DIS AND OTH DIS OF THE CIRC SYS (4) Peripheral edema Code(s): R60.9 - EDEMA, UNSPECIFIED (5) Pulmonary embolism Assessment/Plan: on eliquis 10 BID x 7 days than reduce to 5 BID Pt denies any past medical hx, and says she goes for annual checkups. She was ?largely immobile for 58-72 hours aftrer falling last week. Family hx PE (brother). Code(s): I26.99 - OTHER PULMONARY EMBOLISM WITHOUT ACUTE COR PULMONALE (6) Tachycardia Code(s): R00.0 - TACHYCARDIA, UNSPECIFIED (7) Fall Code(s): W19.XXXA - UNSPECIFIED FALL, INITIAL ENCOUNTER Qualifiers: Encounter type: initial encounter Qualified Code(s): W19.XXXA - Unspecified fall, initial encounter (8) Low back sprain Code(s): S33.5XXA - SPRAIN OF LIGAMENTS OF LUMBAR SPINE, INITIAL ENCOUNTER Qualifiers: Encounter type: initial encounter Qualified Code(s): S33.5XXA - Sprain of ligaments of lumbar spine, initial encounter (9) Hyperlipidemia Assessment/Plan: hx cholesterol "in the 180s" last year; f/u panel. Code(s): E78.5 - HYPERLIPIDEMIA, UNSPECIFIED MIBI st as outpatient when stable
--- NOTE | 2018-06-11 11:38 | PN ---
Progress Note, Physician History of Present Illness: pulmonary alert,no distress,+ jackson,-sob at rest - Current Medication List Current Medications: Active Medications Acetaminophen (Tylenol -) 650 mg PO Q6H PRN PRN Reason: Fever Or Pain Last Admin: 06/11/18 01:28 Dose: 650 mg Apixaban (Eliquis -) 10 mg PO BID [facility] Stop: 06/17/18 22:00 Last Admin: 06/11/18 10:05 Dose: 10 mg Apixaban (Eliquis -) 5 mg PO BID [facility] Bacitracin (Bacitracin -) 1 applic TP BID [facility] Last Admin: 06/11/18 10:06 Dose: 1 applic Docusate Sodium (Colace -) 300 mg PO HS [facility] Last Admin: 06/10/18 21:34 Dose: Not Given Ipratropium [place] (Atrovent 0.02% Nebulizer -) 1 amp NEB RTID [facility] Last Admin: 06/11/18 07:10 Dose: 1 amp Levalbuterol HCl (Xopenex) 0.63 mg IH Q8H PRN PRN Reason: ASTHMA Lisinopril (Prinivil) 2.5 mg PO DAILY [facility] Last Admin: 06/11/18 10:02 Dose: 2.5 mg Metoprolol Tartrate (Lopressor -) 12.5 mg PO BID [facility] Morphine Sulfate (Morphine Sulfate) 4 mg IVPUSH Q3H PRN PRN Reason: PAIN LEVEL 6-10 Polyethylene Glycol (Miralax (For Daily Use) -) 17 gm PO BID [facility] Last Admin: 06/11/18 10:02 Dose: Not Given Senna (Senna -) 1 tab PO BID [facility] Last Admin: 06/11/18 10:08 Dose: Not Given - Objective Vital Signs: Vital Signs Temperature 97.9 F 06/11/18 10:00 Pulse Rate 71 06/11/18 10:00 Respiratory Rate 20 06/11/18 10:00 Blood Pressure 107/63 06/11/18 10:00 O2 Sat by Pulse Oximetry (%) 96 06/10/18 21:00 Constitutional: Yes: Well Nourished, Calm Eyes: Yes: WNL HENT: Yes: WNL Neck: Yes: WNL Cardiovascular: Yes: Regular Rate and Rhythm, S1, S2 Respiratory: Yes: Diminished Gastrointestinal: Yes: Normal Bowel Sounds, Soft Extremities: Yes: WNL Edema: No Labs: CBC, BMP 06/11/18 06:00 06/11/18 07:44 INR, PTT INR 1.03 (0.83-1.09) 06/08/18 07:35 Problem List - Problems (1) Hypoxia Code(s): R09.02 - HYPOXEMIA (2) Peripheral edema Code(s): R60.9 - EDEMA, UNSPECIFIED (3) Pulmonary embolism Code(s): I26.99 - OTHER PULMONARY EMBOLISM WITHOUT ACUTE COR PULMONALE (4) Respiratory distress Code(s): R06.03 - ACUTE RESPIRATORY DISTRESS (5) Fall Code(s): W19.XXXA - UNSPECIFIED FALL, INITIAL ENCOUNTER Qualifiers: Encounter type: initial encounter Qualified Code(s): W19.XXXA - Unspecified fall, initial encounter Assessment/Plan IMP: Acute PE: appears unprovoked COPD: LV DYSFUNCTION CHD Active smoker: 1 PPD Bibasilar atelectasis due to splinting (also causing hypoxemia) AC O2 to maintain saturation Age appropriate cancer screening. (Has not had a mammogram in many years) BD TX w/u for hypercoagulable state as outpatient yearly low dose chest ct for lung cancer screening cardiac w/u as per cardiology pfts outpatient DR GODDARD
[2018-06-11] MEDS: METOPROLOL TARTRATE 25 MG TABLET (FP) PO SCH ×2 (12:17→22:40)
--- NOTE | 2018-06-11 15:56 | PN ---
Teaching Attending Note Name of Resident: Kosta Aguilar ATTENDING PHYSICIAN STATEMENT I saw and evaluated the patient. I reviewed the resident's note and discussed the case with the resident. I agree with the resident's findings and plan as documented. SUBJECTIVE: No CP or SOB, no BERRIOS . cont to have L sided posterior chest pain with deep inspiration OBJECTIVE: NAD CV: RRR, no MRG Lungs: CTAB Ext: no edema or erythema ASSESSMENT AND PLAN: 67 y/o lady with h/o active smoking, family hx of DVT/PE who presented with L sided CP and was found to have acute b/l PEs . 1- Acute bilateral PEs: not clear if provoked or not ( recent fall and decreased mobility ) , has family hx of DVt/PE - cont eliquis 10 BId x 7 days then 5 mg BID after - cont to need 4 L at rest and with ambulation - out patient cancer screening and hypercoagulable work up. she was made aware 2- New diagnosis of chronic systolic heart failure. euvolemic now . - cont low dose lisinopril - add low dose metorpolol - d/w card by resident, stress test can be done as out pt . - d/w Pulm, preferably wait for stress test - hold off spironolactone , not to start many meds at same time 3- Fever: likely due to the VTE. monitor. repeat Cxray in am 4- possible emphysema on CT scan. - No exacerbation - need PFT as out pt - yearly CT scan as out pt 5- Dispo : possible dc tomorrow
--- NOTE | 2018-06-11 18:22 | PN ---
Physical Exam: SUBJECTIVE: Patient seen and examined at bedside. Febrile overnight. OBJECTIVE: Vital Signs Period Temp Pulse Resp BP Sys/Regalado Pulse Ox Last 24 Hr 97.7 F-100.7 F 71-92 20-20 107-135/63-77 96-97 GENERAL: AAOx3 NAD HEAD: Normal with no signs of trauma. EYES: EOMI Sclera Clear EARS, NOSE, THROAT: MMM NECK: Supple No JVD appreciated LUNGS: Decreased BS @ Bases. HEART: rrr nl s1s2 ABDOMEN: nondistended nontender MUSCULOSKELETAL: FROM throughout UPPER EXTREMITIES: No CCE LOWER EXTREMITIES: 1 + edema b/l NEUROLOGICAL: Cranial nerves II-XII intact. Normal speech. SKIN: No CCE Laboratory Results - last 24 hr 06/11/18 06/11/18 06:00 07:44 WBC 9.2 RBC 4.04 Hgb 12.9 Hct 37.4 MCV 92.6 MCH 32.0 MCHC 34.6 RDW 13.6 Plt Count 196 MPV 8.0 Sodium 140 Potassium 3.7 Chloride 104 Carbon Dioxide 31 Anion Gap 6 L BUN 9 Creatinine 0.6 Creat Clearance w eGFR > 60 Random Glucose 94 Calcium 8.2 L Active Medications Generic Name Dose Route Start Last Admin Trade Name Freq PRN Reason Stop Dose Admin Acetaminophen 650 mg 06/09/18 17:45 06/11/18 01:28 Tylenol - PO 650 mg Q6H PRN Administration Fever Or Pain Apixaban 10 mg 06/10/18 22:00 06/11/18 10:05 Eliquis - PO 06/17/18 22:00 10 mg BID MATTIE Administration Apixaban 5 mg 06/18/18 10:00 Eliquis - PO BID MATTIE Bacitracin 1 applic 06/10/18 22:00 06/11/18 10:06 Bacitracin - TP 1 applic BID MATTIE Administration Docusate Sodium 300 mg 06/09/18 22:00 06/10/18 21:34 Colace - PO Not Given HS MATTIE Ipratropium [place] 1 amp 06/08/18 20:00 06/11/18 15:00 Atrovent 0.02% Nebulizer - NEB 1 amp RTID MATTIE Administration Levalbuterol HCl 0.63 mg 06/10/18 12:37 Xopenex IH Q8H PRN ASTHMA Lisinopril 2.5 mg 06/11/18 10:00 06/11/18 10:02 Prinivil PO 2.5 mg DAILY MATTIE Administration Metoprolol Tartrate 12.5 mg 06/11/18 11:30 06/11/18 12:17 Lopressor - PO 12.5 mg BID MATTIE Administration Morphine Sulfate 4 mg 06/09/18 10:33 Morphine Sulfate IVPUSH Q3H PRN PAIN LEVEL 6-10 Polyethylene Glycol 17 gm 06/10/18 10:00 06/11/18 10:02 Miralax (For Daily Use) - PO Not Given BID MATTIE Senna 1 tab 06/10/18 10:00 06/11/18 10:08 Senna - PO Not Given BID MATTIE ASSESSMENT/PLAN: Pt is a 67 y/o lady with no significant past medical history who presented to [facility] c/o abdominal pain that has been persistent since yesterday. Found to desat to mid 80's on RA in ED. #Pulmonary Embolism -CTA Chest--> Acute central and peripheral pulmonary embolism. Bibasilar, right middle lobe opacities consistent with atelectasis. -Lovenox 80 mg In ED -Pulmonary Dr Delgado on board. If oxygen requirements increase or signs of right heart strain, may need I.R guided thrombectomy. -Echo---> No pericardial effusion. EF 35-40%. -Tele - Lovenox 70 BID. Pt's weight 68.039 KG. Lovenox changed to Eliquis 10 MG PO BID. Spoke with Cardiology, Dr Mireles. -NC 4 L. To maintain O2 Sat > 90% Cardiology on board, Dr Mireles. Recommends Beta Ranjan and EVELYN-i. Started Lisinopril 2.5 mg daily. Added low dose B Ranjan today Metoprolol 12.5 BID #FEN No Fluids Monitor Electrolytes Regular Diet #DVT ppx: Eliquis 10 MG PO BID for 5 more days and then 5 MG PO BID after that #Dispo: Tele Visit type - Emergency Visit Emergency Visit: Yes ED Registration Date: 06/08/18 Care time: The patient presented to the Emergency Department on the above date and was hospitalized for further evaluation of their emergent condition. - New Patient This patient is new to me today: No - Critical Care Critical Care patient: No - Discharge Referral Referred to [facility] Med P.C.: No
[2018-06-11] MEDS ORDERED: guaiFENesin 200 MG/10 ML 10 ML UNIT-DOSE CUPS PO ONE (22:16)
[2018-06-11] MEDS: DOCUSATE SODIUM 100 MG CAPSULE (FP) PO SCH (22:45)
[2018-06-12 06:04] VITALS: PULSE 80
[2018-06-12 07:26] LABS: HEMATOCRIT 35.5 % (32.4-45.2); HEMOGLOBIN 12.5 GM/dL (10.7-15.3); MCH 32.4 pg (25.7-33.7); MCHC 35.1 g/dl (32.0-36.0); MEAN CELL VOLUME 92.3 fl (80-96); MEAN PLT VOLUME 7.9 fl (7.5-11.1); PLATELET COUNT 218 K/MM3 (134-434); RBC 3.85 M/mm3 (3.60-5.2); RDW 13.6 % (11.6-15.6)
[2018-06-12 08:04] LABS: ANION GAP 7 MMOL/L (8-16); BLOOD UREA NITROGEN 8 mg/dL (7-18); CALCIUM 8.4 mg/dL (8.5-10.1); CHLORIDE 103 mmol/L (98-107); CO2 29 mmol/L (21-32); CREATININE 0.5 mg/dL (0.55-1.3); GLUCOSE,RANDOM 86 mg/dL (74-106); MAGNESIUM 2.1 mg/dL (1.8-2.4); PHOSPHOROUS 3.6 mg/dL (2.5-4.9); POTASSIUM 3.6 mmol/L (3.5-5.1); SODIUM 139 mmol/L (136-145)
[2018-06-12] MEDS: IPRATROPIUM BR 0.02% 0.5 MG/2.5 ML VIAL.NEB. NEB SCH ×2 (08:40→14:50)
[2018-06-12] MEDS: LISINOPRIL 5 MG TABLET (FP) PO SCH ×2 (09:19→09:29)
[2018-06-12] MEDS: METOPROLOL TARTRATE 25 MG TABLET (FP) PO SCH (09:19)
[2018-06-12] MEDS ORDERED: PT OWN MED DRAWER 7, Y5N ONE (09:22)
[2018-06-12] MEDS: BACITRACIN 15 GM TUBE TOPICAL OINTMENT TP SCH (09:23)
[2018-06-12] MEDS: APIXABAN 5 MG TABLET PO SCH (09:23)
[2018-06-12] MEDS: POLYETHYLENE GLYCOL 3350 119 GM BTL PO SCH (09:26)
[2018-06-12] MEDS: SENNOSIDES 8.6MG TABLET (FP) PO SCH (09:26)
--- NOTE | 2018-06-12 10:22 | PN ---
Progress Note, Physician Chief Complaint: aPt A&Ox3; asymptomatic; ambulatory.; cries briefly when talking about how glad she is to be going home "to my , my home, and my cat". History of Present Illness: 67y white woman with no known PMHx except 1- 04/09 ppd cigarettes for many years (quit once for two years), presents with abdominal pain for 3 days; for the first time, she is constipated. The patient notes that the abdominal pain is intermittent, seems to come in waves associated with no bowel movement for 3 days since. 3 days ago she was seen in our emergency department after fall down stairs; she had a trauma CT workup that was negative for any acute findings. Patient notes that since then she has some chronic left-sided back and flank pain after the fall which resulted in her mostly lying in bed for 48- 72 hours before returning to the hospital. Patient notes that her abdominal pain is intermittent, nonradiating, worse in the left lower quadrant. No associated fever, chills, nausea, vomiting, dysuria, diarrhea. The patient also denies any chest pain or shortness of breath or hemoptysis. Patient denies HELLER; however notes that she has been largely bed-bound since her fall. No hx of DVT/PE, but sister did of lung disease and "heart failure" in her 50s, and brother had PE and MO in his 50s. Pt says she has been in fine health all her life; she has a physical exam yearly. 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 social history: chronic smoker - Current Medication List Current Medications: Active Medications Acetaminophen (Tylenol -) 650 mg PO Q6H PRN PRN Reason: Fever Or Pain Last Admin: 06/11/18 01:28 Dose: 650 mg Apixaban (Eliquis -) 10 mg PO BID [facility] Stop: 06/17/18 22:00 Last Admin: 06/12/18 09:23 Dose: 10 mg Apixaban (Eliquis -) 5 mg PO BID [facility] Bacitracin (Bacitracin -) 1 applic TP BID [facility] Last Admin: 06/12/18 09:23 Dose: 1 applic Docusate Sodium (Colace -) 300 mg PO HS [facility] Last Admin: 06/11/18 22:45 Dose: Not Given Ipratropium [place] (Atrovent 0.02% Nebulizer -) 1 amp NEB RTID [facility] Last Admin: 06/12/18 08:40 Dose: 1 amp Levalbuterol HCl (Xopenex) 0.63 mg IH Q8H PRN PRN Reason: ASTHMA Lisinopril (Prinivil) 5 mg PO DAILY [facility] Last Admin: 06/12/18 09:29 Dose: Not Given Metoprolol Tartrate (Lopressor -) 12.5 mg PO BID [facility] Last Admin: 06/12/18 09:19 Dose: 12.5 mg Morphine Sulfate (Morphine Sulfate) 4 mg IVPUSH Q3H PRN PRN Reason: PAIN LEVEL 6-10 Polyethylene Glycol (Miralax (For Daily Use) -) 17 gm PO BID [facility] Last Admin: 06/12/18 09:26 Dose: Not Given Senna (Senna -) 1 tab PO BID [facility] Last Admin: 06/12/18 09:26 Dose: Not Given - Objective Vital Signs: Vital Signs Temperature 98.6 F 06/12/18 05:59 Pulse Rate 80 06/12/18 05:59 Respiratory Rate 18 06/12/18 05:59 Blood Pressure 140/75 06/12/18 05:59 O2 Sat by Pulse Oximetry (%) 97 06/11/18 20:09 Constitutional: Yes: Well Nourished, Anxious Eyes: Yes: WNL HENT: Yes: WNL Neck: Yes: WNL Cardiovascular: Yes: S1, S2 Respiratory: Yes: Regular, Diminished Gastrointestinal: Yes: Soft ...Rectal Exam: Yes: Deferred Genitourinary: No: Anuria Breast(s): Yes: WNL Musculoskeletal: Yes: Muscle Weakness Extremities: Yes: WNL Edema: No Peripheral Pulses WNL: Yes Integumentary: Yes: WNL Neurological: Yes: WNL Psychiatric: Yes: Alert, Oriented, Other (anxiety/?depression) Labs: CBC, BMP 06/12/18 06:30 06/12/18 06:30 INR, PTT INR 1.03 (0.83-1.09) 06/08/18 07:35 Problem List - Problems (1) Systolic CHF Assessment/Plan: Mild-moderately reduced LVEF of 35-40%. Started ACEI and metoprolol (change to ER); continues both as outpatient. Plans to start spironolactone in the near future if BP, BUN/Cr remain stable on ACEI and beta vannessa, and pt becomes symptomatic.. Plan on ruling ouf CAD with stress MIBI or coronary angiogram once stable from pulmonary viewpoint. Code(s): I50.20 - UNSPECIFIED SYSTOLIC (CONGESTIVE) HEART FAILURE (2) Smokes cigarettes Assessment/Plan: Pt quit once for two years. She does not want help presently with a patch or pill, saying she has to make up her mind. Code(s): F17.210 - NICOTINE DEPENDENCE, CIGARETTES, UNCOMPLICATED (3) Family history of pulmonary embolism Assessment/Plan: Brother had PE; years later, in his 50s, had an MO (heavy smoker). Sister: heavy smoker; of "heart failure" or MO in her 50s. Code(s): Z82.49 - FAMILY HX OF ISCHEM HEART DIS AND OTH DIS OF THE CIRC SYS (4) Peripheral edema Code(s): R60.9 - EDEMA, UNSPECIFIED (5) Pulmonary embolism Assessment/Plan: On Lovenox; plan to change to PO anticoagulation. Pt denies any past medical hx, and says she goes for annual checkups. She was ?largely immobile for 48-72 hours after falling last week. Family hx PE (brother). Code(s): I26.99 - OTHER PULMONARY EMBOLISM WITHOUT ACUTE COR PULMONALE (6) Tachycardia Code(s): R00.0 - TACHYCARDIA, UNSPECIFIED (7) Fall Code(s): W19.XXXA - UNSPECIFIED FALL, INITIAL ENCOUNTER Qualifiers: Encounter type: initial encounter Qualified Code(s): W19.XXXA - Unspecified fall, initial encounter (8) Low back sprain Code(s): S33.5XXA - SPRAIN OF LIGAMENTS OF LUMBAR SPINE, INITIAL ENCOUNTER Qualifiers: Encounter type: initial encounter Qualified Code(s): S33.5XXA - Sprain of ligaments of lumbar spine, initial encounter (9) Hyperlipidemia Code(s): E78.5 - HYPERLIPIDEMIA, UNSPECIFIED
[2018-06-12 10:41] VITALS: BP 134/77; TEMP 98.2
--- NOTE | 2018-06-12 11:30 | PN ---
Progress Note (short form) - Note Progress Note: Feels overall better. Qualified for home O2. No CP or HELLER. No hemoptysis. Intake & Output 06/09/18 06/10/18 06/11/18 06/12/18 23:59 23:59 23:59 23:59 Intake Total 540 400 400 Balance 540 400 400 Last Vital Signs Temp Pulse Resp BP Pulse Ox 98.2 F 80 18 134/77 96 06/12/18 10:00 06/12/18 10:00 06/12/18 10:00 06/12/18 10:00 06/12/18 10:00 Active Medications Acetaminophen (Tylenol -) 650 mg PO Q6H PRN PRN Reason: Fever Or Pain Last Admin: 06/11/18 01:28 Dose: 650 mg Apixaban (Eliquis -) 10 mg PO BID [facility] Stop: 06/17/18 22:00 Last Admin: 06/12/18 09:23 Dose: 10 mg Apixaban (Eliquis -) 5 mg PO BID [facility] Bacitracin (Bacitracin -) 1 applic TP BID [facility] Last Admin: 06/12/18 09:23 Dose: 1 applic Docusate Sodium (Colace -) 300 mg PO HS [facility] Last Admin: 06/11/18 22:45 Dose: Not Given Ipratropium [place] (Atrovent 0.02% Nebulizer -) 1 amp NEB RTID [facility] Last Admin: 06/12/18 08:40 Dose: 1 amp Levalbuterol HCl (Xopenex) 0.63 mg IH Q8H PRN PRN Reason: ASTHMA Lisinopril (Prinivil) 5 mg PO DAILY [facility] Last Admin: 06/12/18 09:29 Dose: Not Given Metoprolol Tartrate (Lopressor -) 12.5 mg PO BID [facility] Last Admin: 06/12/18 09:19 Dose: 12.5 mg Morphine Sulfate (Morphine Sulfate) 4 mg IVPUSH Q3H PRN PRN Reason: PAIN LEVEL 6-10 Polyethylene Glycol (Miralax (For Daily Use) -) 17 gm PO BID [facility] Last Admin: 06/12/18 09:26 Dose: Not Given Senna (Senna -) 1 tab PO BID [facility] Last Admin: 06/12/18 09:26 Dose: Not Given Constitutional: Yes: Well Nourished, Calm Eyes: Yes: WNL HENT: Yes: WNL Neck: Yes: WNL Cardiovascular: Yes: Regular Rate and Rhythm, S1, S2 Respiratory: Yes: Diminished, no wheeze Gastrointestinal: Yes: Normal Bowel Sounds, Soft Extremities: Yes: WNL Edema: No Labs: Laboratory Results - last 24 hr 06/12/18 06/12/18 06:30 06:30 WBC 7.0 RBC 3.85 Hgb 12.5 Hct 35.5 MCV 92.3 MCH 32.4 MCHC 35.1 RDW 13.6 Plt Count 218 MPV 7.9 Sodium 139 Potassium 3.6 Chloride 103 Carbon Dioxide 29 Anion Gap 7 L BUN 8 Creatinine 0.5 L Creat Clearance w eGFR > 60 Random Glucose 86 Calcium 8.4 L Phosphorus 3.6 Magnesium 2.1 Problem List - Problems (1) Hypoxia Code(s): R09.02 - HYPOXEMIA (2) Peripheral edema Code(s): R60.9 - EDEMA, UNSPECIFIED (3) Pulmonary embolism Code(s): I26.99 - OTHER PULMONARY EMBOLISM WITHOUT ACUTE COR PULMONALE (4) Respiratory distress Code(s): R06.03 - ACUTE RESPIRATORY DISTRESS (5) Fall Code(s): W19.XXXA - UNSPECIFIED FALL, INITIAL ENCOUNTER Qualifiers: Encounter type: initial encounter Qualified Code(s): W19.XXXA - Unspecified fall, initial encounter Assessment/Plan Acute bilateral PE: appears unprovoked COPD LV DYSFUNCTION CHD Active smoker: 1 PPD Bibasilar atelectasis due to splinting (also causing hypoxemia) AC with Eliquis 10mg BID x 7 ponce then 5mg BID Advised about smoking cessation and danger of smoking with O2 in the home Age appropriate cancer screening after D/C. (Has not had a mammogram in many years) BD TX PRN Should have outpatient PFTs D/C planning Dr Delgado
[2018-06-12] MEDS ORDERED: metoPROLOL SUCCINATE 25 MG TAB.SR.24H (FP) PO SCH (12:15)
--- NOTE | 2018-06-12 13:10 | PN ---
Teaching Attending Note Name of Resident: Vincent Meza ATTENDING PHYSICIAN STATEMENT I saw and evaluated the patient. I reviewed the resident's note and discussed the case with the resident. I agree with the resident's findings and plan as documented. SUBJECTIVE: No fever or chills. No cp or SOB OBJECTIVE: NAD CV: RRR, no MRG Lungs: CTAB Ext: no edema or erythema. ASSESSMENT AND PLAN: 67 y/o lady with h/o active smoking, family hx of DVT/PE who presented with L sided CP and was found to have acute b/l PEs . 1- Acute bilateral PEs: not clear if provoked or not ( recent fall and decreased mobility ) , has family hx of DVt/PE - cont eliquis 10 BId x 5 more days days then 5 mg BID after - duration to be determined after f/u with heme - cont to need 4 L at rest and with ambulation . she was instructed to quit smoking and aware of face ferrer if not - out patient cancer screening and hypercoagulable work up. 2- New diagnosis of chronic systolic heart failure. euvolemic now . - cont and increase dose of lisinopril - toprol at dc - stress test as out pt 3- Fever: likely due to the VTE.resolved . no signs of PNA 4- possible emphysema on CT scan. - No exacerbation - need PFT as out pt - yearly CT scan as out pt 5- Dispo :DC home today .
--- NOTE | 2018-06-12 13:13 | DS ---
Physical Exam: SUBJECTIVE: Patient seen and examined at bedside. No acute events overnight. No fevers overnight. OBJECTIVE: Vital Signs Period Temp Pulse Resp BP Sys/Regalado Pulse Ox Last 24 Hr 98.2 F-99.0 F 76-81 18-20 121-140/70-77 96-97 PHYSICAL EXAM GENERAL: No acute distress. HEAD: Atraumatic/Normocephalic EYES: EOMI Sclera Clear EARS, NOSE, THROAT: MMM NECK: Supple No JVD appreciated LUNGS: Clear to Auscultation. HEART: rrr nl s1s2 ABDOMEN: nondistended nontender MUSCULOSKELETAL: FROM throughout UPPER EXTREMITIES: No CCE LOWER EXTREMITIES: 1 + edema b/l NEUROLOGICAL: Cranial nerves II-XII intact. Normal speech. SKIN: No CCE LABS Laboratory Results - last 24 hr 06/12/18 06/12/18 06:30 06:30 WBC 7.0 RBC 3.85 Hgb 12.5 Hct 35.5 MCV 92.3 MCH 32.4 MCHC 35.1 RDW 13.6 Plt Count 218 MPV 7.9 Sodium 139 Potassium 3.6 Chloride 103 Carbon Dioxide 29 Anion Gap 7 L BUN 8 Creatinine 0.5 L Creat Clearance w eGFR > 60 Random Glucose 86 Calcium 8.4 L Phosphorus 3.6 Magnesium 2.1 HOSPITAL COURSE: Date of Admission:06/08/18 Pt is a 67 y/o lady with no significant past medical history who presented to [facility] c/o abdominal pain that had been persistent for 1 day. While in ED, pt was found to desat to 85% on room air. Pt underwent a CTA Chest which revealed an acute central and peripheral pulmonary embolism as well as bibasilar, right middle lobe opacities consistent with atelectasis. Pt was given Lovenox 80 MG one time in the ED. Pt was started on Lovenox 70 KG BID. Pt was placed on 4L NC to maintain O2 Sat >90%. pt was started on Toprol XL 25 Daily, Lisinopril 5 Daily, as well as Eliquis 10 MG. Pt underwent an echocardiogram which revealed an EF of 35-40%. Furthermore, pt was noted to spike fevers during her stay which most likely were 2/2 her pulmonary embolism. Called pharmacy before pt was discharged to make sure Eliquis medication was covered. Pharmacist stated that 10 mg dose would not be covered without prior authorization. I spoke with an agent named ([id number]) for pre- authorization. Date of Discharge: 06/12/18 Minutes to complete discharge: 35 Discharge Summary Reason For Visit: PULMONARY EMBOLISM Current Active Problems Pulmonary embolism (Acute) Family history of pulmonary embolism (Chronic) Hyperlipidemia (Chronic) Hypoxia (Chronic) Smokes cigarettes (Chronic) Systolic CHF (Chronic) Condition: Improved - Instructions Diet, Activity, Other Instructions: You presented to the hospital due to abdominal pain. You were also noted to have shortness of breath and a low blood oxygen level. You will need a stress test performed by your water softener installer when you leave the hospital. This can be done as out pt . Please follow up with your Stunt Driver in 1 week. A referral has been provided for you for Dr. Murphy . The cause of the clot in your lungs may have been caused by your fall. However, it is crucial for you to follow up with the blood doctor, Dr Lopez so that you may undergo a complete blood workup and see if you have any underlying triggers to form clots. please follow up with Dr. Kelly lung doctor within one week . you will need pulmonary function tests after discharge please follow up with your primary within one week to remove the stitches and you need cancer screening (mamogram , colonscopy ....). You will also need a yearly CT scan of your chest as an outpatient in light of your smoking history. Please follow up with your primary doctor. Please take the following medication below as prescribed: Eliquis 10 MG TWICE per day starting tomorrow morning for 5 days: MAY 16- . After that, please take Eliquis 5 MG TWICE per day . duration of treatment will be determined as per hematology. you will be on eliquis for at least 6 months for now, then to be determined. ask for refills before you finish You need stress test done by water softener installer after discharge Metoprolol 25 MG TWICE per day Lisinopril 5 MG Daily You will be sent home on oxygen. You will be shown how to use your oxygen by the oxygen company before you are discharged. Please return to the Emergency department immediately if you begin to experience chest pain, shortness of breath, difficulty breathing, nausea/ vomiting, or any other abnormal symptom. NO smoking while on O2 . Referrals: Gen Kelly MD [Staff Physician] - 1 Week Frantz Flynn [Primary Care Provider] - 1 Week Juan Francisco Mireles MD [Staff Physician] - 2 Weeks Jaiden Lopez MD [Staff Physician] - 1 Week Disposition: HOME - Home Medications Comprehensive Discharge Medication List: Ambulatory Orders Albuterol Sulfate Inhaler - [Ventolin HFA Inhaler -] 1 - 2 inh PO Q4H #1 inhaler 06/12/18 Apixaban [Eliquis -] 5 mg PO BID #60 tablet 06/12/18 Apixaban [Eliquis -] 10 mg PO BID #10 tablet 06/12/18 Docusate Sodium [Colace -] 300 mg PO HS capsule 06/12/18 Lisinopril [Prinivil] 5 mg PO DAILY #30 tablet 06/12/18 Metoprolol Succinate [Toprol Xl] 25 mg PO DAILY #30 tab.er.24h 06/12/18 This patient is new to me today: No Emergency Visit: Yes ED Registration Date: 06/08/18 Care time: The patient presented to the Emergency Department on the above date and was hospitalized for further evaluation of their emergent condition. Critical Care patient: No - Discharge Referral Referred to [facility] No
[2018-06-18] MEDS ORDERED: APIXABAN 5 MG TABLET PO SCH (10:00)
== END 2018-06-12 15:51 | disposition home or self-care (01) | DRG 176 ==
LOC: JER 07:09 → JERBED 12:27 → J4S 14:33
PROVIDERS: ADMIT Internal Medicine; ATTEND Internal Medicine
DX: I26.99 Other pulmonary embolism without acute cor pulmonale (principal); J98.11 Atelectasis; I50.22 Chronic systolic (congestive) heart failure; R06.02 Shortness of breath; R00.0 Tachycardia, unspecified; J44.9 Chronic obstructive pulmonary disease, unspecified; R09.02 Hypoxemia; R06.03 Acute respiratory distress; R60.9 Edema, unspecified; F17.210 Nicotine dependence, cigarettes, uncomplicated; E78.5 Hyperlipidemia, unspecified; R50.9 Fever, unspecified; S33.5XXA Sprain of ligaments of lumbar spine, initial encounter; W18.39XA Other fall on same level, initial encounter; Y92.89 Other specified places as the place of occurrence of the external cause; Z86.718 Personal history of other venous thrombosis and embolism
CPT/HCPCS: 36415; 71045-TC-FY; 71275-TC; 74018-TC-FY; 74177-TC; 80048; 80053; 80061; 81003; 81015; 83605; 83690; 83721; 83735; 83880; 84100; 84443; 84484; 85025; 85027; 85610; 85730; 86850; 86900; 86901; 87040; 93005; 93010; 93306-TC; 93970-TC; 94010; 94640; 94761; 97116-GP; 97161-GP; 99283-25; J7030

== ENCOUNTER 2020-05-17 11:37 | Emergency (ER) | payer OTHER ==
[2020-05-17 11:48] VITALS: BP 153/93; PULSE 72; TEMP 97.7; BMI 26.6
[2020-05-17] MEDS ORDERED: ACETAMINOPHEN 325 MG TABLET (FP) PO ONE (12:00)
[2020-05-17] MEDS ORDERED: ACETAMINOPHEN 325 MG TABLET (FP) ONE (12:05)
[2020-05-17] MEDS ORDERED: LIDOCAINE HCL 1%, 10 MG/ML (20ML VIAL) ONE (12:50)
[2020-05-17] MEDS ORDERED: LIDOCAINE HCL 1%, 10 MG/ML (50 mL VIAL) SQ ONE (12:50)
[2020-05-17] MEDS ORDERED: PRESCRIPTION PAD 1 EACH EACH NR ONE (13:25)
== END 2020-05-17 14:04 | disposition home or self-care (01) ==
LOC: FER 11:37
DX: S93.105A Unspecified dislocation of left toe(s), initial encounter (principal)
CPT/HCPCS: 73560-TC-RT-FY; 73590-TC-RT-FY; 73660-TC-LT-FY; 99285-25

== ENCOUNTER 2022-08-20 16:40 | Emergency (ER) | payer OTHER ==
[2022-08-20] MEDS ORDERED: KETOROLAC TROMETHAMINE 30 MG/1 ML VIAL IM ONE (17:05)
[2022-08-20 17:10] VITALS: BP 116/72; PULSE 97; RESP 16; TEMP 98.9; BMI 26.6
[2022-08-20] MEDS ORDERED: LIDOCAINE 5% TOPICAL PATCH TP ONE (17:29)
[2022-08-20] MEDS ORDERED: ACETAMINOPHEN 500 MG TABLET (FP) PO ONE (17:29)
[2022-08-20] MEDS ORDERED: ACETAMINOPHEN 500 MG TABLET (FP) ONE (17:32)
[2022-08-20] MEDS ORDERED: LIDOCAINE 5% TOPICAL PATCH ONE (17:32)
[2022-08-20] MEDS ORDERED: LIDOCAINE PATCH REMOVAL MC SCH (22:00)
== END 2022-08-20 19:58 | disposition home or self-care (01) ==
LOC: FER 16:40
DX: R07.81 Pleurodynia (principal); W19.XXXA Unspecified fall, initial encounter
CPT/HCPCS: 71111-TC-FY; 99283-25

== ENCOUNTER 2022-10-08 16:58 | Emergency (ER) | payer OTHER ==
[2022-10-08 17:24] VITALS: BP 129/70; PULSE 89; RESP 18; TEMP 99.5; BMI 26.6
[2022-10-08] MEDS ORDERED: SODIUM CHLORIDE 0.9% 500 ML INFUS.BAG IV ONE (17:41)
[2022-10-08] MEDS ORDERED: SUCRALFATE 1 GM TABLET (FP) PO ONE (17:41)
[2022-10-08] MEDS ORDERED: METOCLOPRAMIDE HCL INJECTION 10 MG/2 ML VIAL IVPB ONE (17:41)
[2022-10-08] MEDS ORDERED: MAG HYDROX/AL HYDROX/SIMETH -MYLANTA- ORAL SUSPENSION PO ONE (17:41)
[2022-10-08] MEDS ORDERED: FAMOTIDINE 20 MG/50 ML IVPB 20 MG/50 ML MG IVPB ONE ×2 (17:41→18:02)
[2022-10-08] MEDS ORDERED: METOCLOPRAMIDE HCL INJECTION 10 MG/2 ML VIAL ONE (18:01)
[2022-10-08] MEDS ORDERED: SUCRALFATE 1 GM/10 ML UNIT DOSE CUPS ONE (18:02)
[2022-10-08] MEDS ORDERED: MAG HYDROX/AL HYDROX/SIMETH 30 ML UNIT-DOSE CUP ONE (18:02)
[2022-10-08 18:32] LABS: BILIRUBIN,TOTAL 0.8 mg/dl (0.2-1); BLOOD UREA NITROGEN 18.4 mg/dl (7-18); CALCIUM 8.6 mg/dl (8.5-10.1); CREATININE 0.7 mg/dl (0.6-1.3); POTASSIUM 3.7 mmol/L (3.5-5.1); SGOT/AST 18.8 U/L (15-37); SGPT/ALT 18.2 U/L (7-52); TOT PROT 6.6 g/dl (6.4-8.2)
[2022-10-08 18:44] LABS: HEMATOCRIT 46.6 % (32.4-45.2); HEMOGLOBIN 15.8 G/dL (10.7-15.3); MCHC 33.9 g/dl (32.0-36.0); MEAN CELL VOLUME 94.4 fl (80-96); MEAN PLT VOLUME 8.2 fl (7.5-11.1); PLATELET COUNT 242.8 10^3/uL (134-434); RBC 4.94 10^6/uL (3.60-5.2); RDW 14.2 % (11.6-15.6); WHITE BLOOD COUNT 7.7 10^3/uL (4.0-10.8)
[2022-10-08 18:46] LABS: PLATELET ESTIMATE ADEQUATE
== END 2022-10-08 20:30 | disposition home or self-care (01) ==
LOC: FER 16:58
PROC: 3E033GC Introduction of Other Therapeutic Substance into Peripheral Vein, Percutaneous Approach (ICD-10-PCS; principal; 2022-10-08)
PROC: 3E033GC Introduction of Other Therapeutic Substance into Peripheral Vein, Percutaneous Approach (ICD-10-PCS; 2022-10-08)
DX: R11.2 Nausea with vomiting, unspecified (principal); R19.7 Diarrhea, unspecified; R10.12 Left upper quadrant pain; R10.13 Epigastric pain; Z20.822 Contact with and (suspected) exposure to COVID-19
CPT/HCPCS: 0241U-QW; 36415; 80053; 83605; 83690; 84484; 85025; 93005; 99284-25